=== PATIENT | male | born 1990 | race Caucasian/White ===

== ENCOUNTER 2020-07-09 15:13 | Emergency (ER) | payer OTHER, SELFPAY ==
--- NOTE | 2020-07-09 16:04 | PC.NURSE ---
pt signed in, asked if he could smoke a cigarette, was told hospital smoking policy and exited the waiting area. Pt did not return.
== END 2020-07-09 16:05 | disposition left against medical advice (07) ==
LOC: HO.ED 16:04
PROVIDERS: Emergency Provider Emergency Medicine
DX: R06.02 Shortness of breath (principal); R05 Cough; F17.210 Nicotine dependence, cigarettes, uncomplicated

== ENCOUNTER 2022-04-15 09:15 | Emergency (ER) | payer OTHER, SELFPAY ==
--- NOTE | ~2022-04-15 | XR_ITS ---
EXAMINATION: XR CHEST CLINICAL INFORMATION: Chest pain. COMPARISON: None TECHNIQUE: 2 views of the chest were obtained. FINDINGS: The lungs are clear. The cardiomediastinal silhouette is normal in size. There is no pleural effusion or pneumothorax. No acute osseous abnormality. XR/XR chest 2V IMPRESSION: No acute cardiopulmonary findings.
[2022-04-15 09:26] VITALS: BP 149/82; PULSE 67; RESP 16; TEMP 36.2; O2SAT 99; BMI 28.1
--- NOTE | 2022-04-15 10:32 | ECG_ITS ---
Test Reason : CP Blood Pressure : / mmHG Vent. Rate : 054 BPM Atrial Rate : 054 BPM P-R Int : 152 ms QRS Dur : 100 ms QT Int : 432 ms P-R-T Axes : 060 076 052 degrees QTc Int : 409 ms Sinus bradycardia Otherwise normal ECG When compared with ECG of 13-JUL-2016 11:26, ST no longer elevated in Anterior leads Nonspecific T wave abnormality now evident in Lateral leads Referred By: Cammy Lundberg Electronically Signed By:Julio Anderson
--- NOTE | 2022-04-15 10:36 | ED.ABDPAIN ---
HPI - Abdominal Pain General Chief Complaint: Abdominal Pain Stated Complaint: Abd pain/Leg numbness/Headache Time Seen by Provider: 04/15/22 10:20 Source: patient Mode of arrival: ambulatory Limitations: no limitations History of Present Illness HPI narrative: 32-year-old male who has a history of hepatitis C who presents with complaints of abdominal pain for several months. Patient reports he has had several ER visits post [facility] and [facility] and has had lab work, CTs which have all been normal. He did find out that he was hep C positive. He did is zoom call with a clinical biostatistics director and had outpatient labs ordered and drawn yesterday. he is waiting for the results. He denies any associated nausea or vomiting. He does report decreased oral intake. He was prescribed omeprazole but he has not started this. He is taking Carafate 4 times daily. Patient also reports constipation. He is taking MiraLax once daily but is still having hard stools. No diarrhea, fever or urinary symptoms. Last night he woke up in the middle the night complaining of left-sided chest pain, shortness of breath, headache, tingling. Patient reports the symptoms have improved but he still has mild chest discomfort. He reports he is quite worried about his abdominal pain. No recent travel, no sick contact, no leg swelling or leg pain. 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 Related Data Allergies Allergy/AdvReac Type Severity Reaction Status Date / Time red dye [RED DYE] Allergy Severe THROAT Verified 04/15/22 09:26 SWELLING, ITCHY RASH diphenhydramine Allergy Intermediate HIVES Verified 04/15/22 09:26 [From BENADRYL] Review of Systems Review of Systems Yes all other systems are reviewed and are negative Constitutional: Reports no additional constitutional complaints, Denies body ache(s), Denies chills, Denies fever(s), Reports headache(s), Reports poor appetite and Denies weakness Eyes: Reports no additional eye complaints and Denies change in vision Reports system reviewed and no additional complaints, except as documented, Denies dizziness, Reports headache(s), Denies nasal congestion, Denies nasal discharge and Denies neck pain Cardiovascular: Reports no additional cardiovascular complaints, Reports chest pain, Denies leg edema and Reports dyspnea Respiratory: Reports no additional respiratory complaints, Denies cough and Reports dyspnea Gastrointestinal: Reports no additional gastrointestinal complaints, Reports abdominal pain, Reports constipation, Denies diarrhea, Denies nausea and Denies vomiting Genitourinary: Denies urinary incontinence Musculoskeletal: Reports no additional musculoskeletal complaints, Denies back pain, Denies arthralgias, Denies joint swelling, Denies neck pain, Denies numbness and Denies tingling Skin/Breast: Reports system reviewed and no additional complaints, except as docu and Denies rash Reports system reviewed and no additional complaints, except as documented, Denies dizziness, Reports headache(s), Denies numbness, Denies tingling and Denies weakness [facility] Past Medical History Attestation statement: The following information was validated with the patient. Source: old records reviewed and nursing notes reviewed Social History Social History Advance Directives: No Advance Directives Information Provided: Yes Physical Exam ED Vital Signs: Vital Signs - 24 hr 04/15/22 09:26 Temperature 97.1 F Pulse Rate 67 Respiratory Rate 16 Blood Pressure 149/82 H Pulse Oximetry 99 Oxygen Delivery Method Room Air BMI result Body Mass Index 28.1 Const General: cooperative, healthy appearing, comfortable and no acute distress Orientation/consciousness: patient oriented x3 Limitations: no limitations HENMT Head: Yes normal to inspection Ears: hearing grossly normal bilaterally Eyes General: appearance normal, both eyes and all related structures Pupils: Equal, round and reactive pupils present Neck Neck: Yes normal visual inspection and Yes full ROM Chest Chest palpation & inspection: normal inspection of the chest Resp Effort & Inspection: normal respiratory effort Auscultation: clear to auscultation bilaterally Cardio Rate: regular rate Rhythm: regular rhythm Peripheral pulses: Peripheral pulses 2+ throughout GI Inspection: Yes normal to inspection Palpation (GI): Soft to palpation and nontender General: Yes no CVA tenderness Back/Spine/Pelvis Back: no CVA tenderness Thoracic/Lumbar Spine: thoracic and lumbar spine normal to inspection Skin General skin exam: no rashes or lesions noted Neuro General: patient oriented x3 and moves all extremities Cranial nerves: Yes Equal, round and reactive pupils present Cognition (Neuro): normal cognition Gait exam (Neuro): Normal gait present Extrem General: Yes normal to inspection, Yes no pedal edema and Yes no calf tenderness Course Course Course Narrative: labs are unremarkable. UA negative for infection. Chest x-ray shows no acute finding. EKG is nonischemic. patient already has follow-up planned with his clinical biostatistics director. He was able to pull up a CT scan that he had 2 weeks ago at [facility] the emergency room which was negative. We discussed continue to follow-up with them. Reviewed worrisome signs and symptoms of when to return to the emergency room. Comfortable plan for discharge home. Medical Decision Making Medical Decision Making [facility] Narrative: 32 yo male here with chronic abdominal pain for months, constipation unrelieved with miralax, carafate. Did zoom call with GI yesterday and had outpatient labs which were ordered and completed ([facility]). Does not know results. Woke up in the night with CP, shortness of breath, headache, tingling. +++anxiety. abdomen soft nontender. Overall nontoxic appearing vitals stable. Lungs are clear. Will check labs, UA, EKG, chest x-ray, viral testing Will attempt to get records from recent ER visit at [facility] in which patient had a CT Differential Diagnosis Differential Diagnoses: The differential diagnosis associated with the presentation includes less likely acute appendicitis or diverticulitis, or ACS or PE (PERC 0) Lab Data [facility] Lab Attestation statement: I reviewed the patient's lab results. 04/15/22 11:26 04/15/22 11:26 Labs: Lab Results 04/15/22 04/15/22 04/15/22 Range/Units 11:26 11:26 11:26 WBC 5.1 (4.8-10.8) X10*3/uL RBC 5.13 (4.60-5.80) X10*6/uL Hgb 15.6 (14.0-18.0) g/dl Hct 43.4 (42.0-52.0) % MCV 84.6 (80.0-98.0) fL MCH 30.4 (27.0-33.0) pg MCHC 35.9 (31.0-36.0) g/dl RDW 11.4 (11.0-16.0) % Plt Count 156 L (160-400) X10*3/uL MPV 12.5 H (9.4-12.4) fL Immature Gran % (Auto) 0.4 (0.0-0.4) % Neut % (Auto) 70.4 (45-73) % Lymph % (Auto) 19.8 L (20-40) % [place] % (Auto) 6.8 (2-11) % Eos % (Auto) 1.8 (0-4) % Baso % (Auto) 0.8 (0-2) % Lymph # (Auto) 1.0 L (1.2-4.9) X10*3/uL [place] # (Auto) 0.4 (0.1-1.2) X10*3/uL Eos # (Auto) 0.1 (0.0-0.4) X10*3/uL Baso # (Auto) 0.0 (0.0-0.2) X10*3/uL Abs Immat Gran (auto) 0.02 (0.00-0.03) X10*3/uL Absolute Neuts (auto) 3.6 (2.0-8.3) x10*3/uL Absolute Nucleated RBC 0.000 (0.0-0.012) X10*3/uL Nucleated RBC % (auto) 0.0 (0.0-0.2) /100WBC PT 13.6 H (10.0-13.1) SEC INR 1.2 H (0.9-1.1) Sodium (135-145) mmol/L Potassium (3.3-5.1) mmol/L Chloride (96-108) mmol/L Carbon Dioxide (22-29) mmol/L Anion Gap (12-20) BUN (9-16) mg/dL Creatinine (0.5-1.4) mg/dL Estim Creat Clear Calc Estimated GFR Random Glucose (60-115) mg/dL Calcium (8.4-10.2) mg/dL Magnesium (1.6-2.6) mg/dL Total Bilirubin (0.0-1.0) mg/dL Direct Bilirubin (0.0-0.5) mg/dL AST (5-37) U/L ALT (0-40) U/L Alkaline Phosphatase (39-117) U/L Troponin I High Sens (<3.5-35.0) ng/L Total Protein (6.5-8.0) g/dL Albumin (3.5-5.0) g/dL Lipase (8-78) U/L Urine Color Urine Appearance Urine pH (5.0-9.0) Ur Specific [place] (1.005-1.025) Urine Protein (Neg-Trace) mg/dL Urine Glucose (UA) (Negative) mg/dL Urine Ketones (Negative) mg/dL Urine Blood (Negative) Urine Nitrite (Negative) Ur Leukocyte Esterase (Negative) Urine RBC (0-2) /HPF Urine WBC (0-5) /HPF Ur Squamous Epith Cells (0-2) /HPF Urine Bacteria (None Seen) Hyaline Casts (0-2) /LPF Influenza Type A (PCR) NEGATIVE (Negative) Influenza Type B (PCR) NEGATIVE (Negative) RSV RNA Qual (PCR) NEGATIVE (Negative) SARS-CoV-2 RNA (RT-PCR) NEGATIVE (Negative) 04/15/22 04/15/22 04/15/22 Range/Units 11:26 11:26 11:26 WBC (4.8-10.8) X10*3/uL RBC (4.60-5.80) X10*6/uL Hgb (14.0-18.0) g/dl Hct (42.0-52.0) % MCV (80.0-98.0) fL MCH (27.0-33.0) pg MCHC (31.0-36.0) g/dl RDW (11.0-16.0) % Plt Count (160-400) X10*3/uL MPV (9.4-12.4) fL Immature Gran % (Auto) (0.0-0.4) % Neut % (Auto) (45-73) % Lymph % (Auto) (20-40) % [place] % (Auto) (2-11) % Eos % (Auto) (0-4) % Baso % (Auto) (0-2) % Lymph # (Auto) (1.2-4.9) X10*3/uL [place] # (Auto) (0.1-1.2) X10*3/uL Eos # (Auto) (0.0-0.4) X10*3/uL Baso # (Auto) (0.0-0.2) X10*3/uL Abs Immat Gran (auto) (0.00-0.03) X10*3/uL Absolute Neuts (auto) (2.0-8.3) x10*3/uL Absolute Nucleated RBC (0.0-0.012) X10*3/uL Nucleated RBC % (auto) (0.0-0.2) /100WBC PT (10.0-13.1) SEC INR (0.9-1.1) Sodium 142 (135-145) mmol/L Potassium 4.5 (3.3-5.1) mmol/L Chloride 103 (96-108) mmol/L Carbon Dioxide 30 H (22-29) mmol/L Anion Gap 14 (12-20) BUN 9 (9-16) mg/dL Creatinine 1.04 (0.5-1.4) mg/dL Estim Creat Clear Calc 116.9 Estimated GFR > 60 Random Glucose 104 (60-115) mg/dL Calcium 9.6 (8.4-10.2) mg/dL Magnesium 1.7 (1.6-2.6) mg/dL Total Bilirubin 1.1 H (0.0-1.0) mg/dL Direct Bilirubin 0.4 (0.0-0.5) mg/dL AST 26 (5-37) U/L ALT 45 H (0-40) U/L Alkaline Phosphatase 43 (39-117) U/L Troponin I High Sens < 3.5 (<3.5-35.0) ng/L Total Protein 7.1 (6.5-8.0) g/dL Albumin 4.5 (3.5-5.0) g/dL Lipase 11 (8-78) U/L Urine Color Yellow Urine Appearance Clear Urine pH 6.5 (5.0-9.0) Ur Specific [place] <= 1.005 (1.005-1.025) Urine Protein Negative (Neg-Trace) mg/dL Urine Glucose (UA) Negative (Negative) mg/dL Urine Ketones 15 (Negative) mg/dL Urine Blood Negative (Negative) Urine Nitrite Negative (Negative) Ur Leukocyte Esterase Trace H (Negative) Urine RBC 0-2 (0-2) /HPF Urine WBC 0-5 (0-5) /HPF Ur Squamous Epith Cells 0-2 (0-2) /HPF Urine Bacteria None Seen (None Seen) Hyaline Casts 0-2 (0-2) /LPF Influenza Type A (PCR) (Negative) Influenza Type B (PCR) (Negative) RSV RNA Qual (PCR) (Negative) SARS-CoV-2 RNA (RT-PCR) (Negative) Independent Interpretation I performed an independent interpretation of an: EKG and Plain X-Ray Interpretation: I independently reviewed the EKG which shows sinus bradycardia with rate of 54, normal GA, normal QRS, normal QT I indepedentely reviewed the x-ray and agree with radiologist's report Radiology Impression Discussion of test interpretation with radiology: I have reviewed the radiologist's reading. Radiologist Impression: Launch?Image [address] [address] XRay Report Signed Patient: Adrian Santos MR#: [id number] : 1990 Acct:[id number] Age/Sex: 32 / M ADM Date: 04/15/22 Loc: .ED Attending Dr: Ordering Physician: Cammy Mckeon NP Date of Service: 04/15/22 Procedure(s): XR chest 2V Accession Number(s): [id number] cc: Cammy Mckeon NP~ EXAMINATION: XR CHEST CLINICAL INFORMATION: Chest pain. COMPARISON: None TECHNIQUE: 2 views of the chest were obtained. FINDINGS: The lungs are clear. The cardiomediastinal silhouette is normal in size. There is no pleural effusion or pneumothorax. No acute osseous abnormality. XR/XR chest 2V IMPRESSION: No acute cardiopulmonary findings. Discharge Plan Discharge Clinical Impression: Abdominal pain, Chest pain Patient Disposition: Home, Self-Care Instructions: Chest Pain (DC), Abdominal Pain (ED) Additional Instructions: Continue with your follow-up with GI your labs, EKG, chest x-ray, urine sample are all reassuring Your test for flu, covid and rsv are negative Referrals: Physician,Unknown J [Primary Care Provider] - Interventions: ED Discharge Assessment Last Done: 04/15/22 12:32 Discharge Date/Time: 04/15/22 12:33
[2022-04-15 11:35] LABS: Basophils Percent Auto 0.8 % (0-2); Eosinophils Absolute Auto 0.1 X10*3/uL (0.0-0.4); Eosinophils Percent Auto 1.8 % (0-4); Hematocrit 43.4 % (42.0-52.0); Hemoglobin 15.6 g/dl (14.0-18.0); Imm Gran Abs Auto 0.02 X10*3/uL (0.00-0.03); Imm Gran Pct Auto 0.4 % (0.0-0.4); Lymphocytes Percent Auto 19.8 % (20-40); MANUAL DIFF FLAG NO; Mean Corpuscular HGB Conc 35.9 g/dl (31.0-36.0); Mean Corpuscular Hemoglobin 30.4 pg (27.0-33.0); Mean Corpuscular Volume 84.6 fL (80.0-98.0); Mean Platelet Volume 12.5 fL (9.4-12.4); Monocytes Absolute Auto 0.4 X10*3/uL (0.1-1.2); Monocytes Percent Auto 6.8 % (2-11); Neutrophils Absolute Auto 3.6 x10*3/uL (2.0-8.3); Neutrophils Percent Auto 70.4 % (45-73); Platelet Count 156 X10*3/uL (160-400); Red Blood Count 5.13 X10*6/uL (4.60-5.80); Red Cell Distribution Width 11.4 % (11.0-16.0); White Blood Count 5.1 X10*3/uL (4.8-10.8)
[2022-04-15 11:36] LABS: Appearance Urine Clear; Color Urine Yellow; Glucose Urine UA Negative (Negative); Leukocyte Esterase Urine Trace (Negative); Nitrite Urine Negative (Negative); PH 6.5 (5.0-9.0); Specific Gravity - Urine <= 1.005 (1.005-1.025); UMIC TRIGGER UACC YES; Urine Blood Negative (Negative); Urine Ketones 15 mg/dL (Negative); Urine Protein Negative (Neg-Trace)
[2022-04-15 11:38] LABS: Bacteria Urine None Seen (None Seen); Hyaline Casts Urine 0-2 /LPF (0-2); RBC Urine 0-2 /HPF (0-2); Squamous Epithelial Cell Urine 0-2 /HPF (0-2); WBC Urine 0-5 /HPF (0-5)
[2022-04-15 11:40] LABS: INTERNATIONAL NORM RATIO 1.2 (0.9-1.1); Prothrombin Time 13.6 SEC (10.0-13.1)
[2022-04-15 11:51] LABS: Alanine Aminotransferase 45 U/L (0-40); Albumin Level 4.5 g/dL (3.5-5.0); Alkaline Phosphatase 43 U/L (39-117); Anion Gap 14 (12-20); Aspartate Amino Transferase 26 U/L (5-37); Bilirubin Direct 0.4 mg/dL (0.0-0.5); Bilirubin Total 1.1 mg/dL (0.0-1.0); Blood Urea Nitrogen 9 mg/dL (9-16); Calcium 9.6 mg/dL (8.4-10.2); Carbon Dioxide 30 mmol/L (22-29); Chloride 103 mmol/L (96-108); Creatinine Clr Calc Pharmacy 116.9; Estimated Glomerular Filt Rate > 60; Glucose Random 104 mg/dL (60-115); Lipase 11 U/L (8-78); Magnesium 1.7 mg/dL (1.6-2.6); Potassium 4.5 mmol/L (3.3-5.1); Sodium 142 mmol/L (135-145); Total Protein 7.1 g/dL (6.5-8.0)
[2022-04-15 11:58] LABS: Troponin-I High Sensitivity < 3.5 ng/L (<3.5-35.0)
[2022-04-15 12:16] LABS: Influenza A PCR NEGATIVE (Negative); Influenza B PCR NEGATIVE (Negative); Resp Syncy Virus RNA Qual PCR NEGATIVE (Negative); SARS COV2 PCR INHOUSE NEGATIVE (Negative)
== END 2022-04-15 12:33 | disposition home or self-care (01) ==
PROVIDERS: Nurse Practitioner Family; Emergency Provider Emergency Medicine Emergency Medical Services
DX: R10.9 Unspecified abdominal pain (principal); R07.89 Other chest pain; R06.02 Shortness of breath; R51.9 Headache, unspecified; Z20.822 Contact with and (suspected) exposure to COVID-19; Z20.828 Contact with and (suspected) exposure to other viral communicable diseases; Z79.899 Other long term (current) drug therapy
CPT/HCPCS: 0241U; 36415; 71046; 80048; 80076; 81001; 83690; 83735; 84484; 85025; 85610; 93005; 99284

== ENCOUNTER 2022-04-17 20:43 | Emergency (ER) | payer OTHER, SELFPAY ==
--- NOTE | ~2022-04-17 | CT_ITS ---
EXAMINATION: CT ABDOMEN AND PELVIS WITHOUT CONTRAST CLINICAL INFORMATION: Abdominal pain COMPARISON: None TECHNIQUE: Multidetector volumetric imaging was performed from the superior aspect of the liver through the pubic symphysis. Sagittal and coronal reformatted images were obtained on the technologist's workstation. This CT examination was performed using dose optimization techniques as appropriate, variously including the following: *Automated exposure control *Adjustment of mA and/or kV according to patient size (this includes techniques or standardized protocols for targeted exams where dose is matched to indication/reason for exam; i.e. extremities or head) *Use of iterative reconstruction technique DLP: 586 mGy-cm FINDINGS: LUNG BASES: The visualized lung bases are unremarkable. LIVER, GALLBLADDER, AND BILIARY TREE: The liver is normal in size, shape, and attenuation. No focal hepatic lesion or biliary ductal dilatation is present. The gallbladder is unremarkable with no evidence of radiopaque gallstones, gallbladder wall thickening, or obvious pericholecystic inflammatory changes. PANCREAS: Unremarkable. SPLEEN: Unremarkable. ADRENAL GLANDS: Unremarkable. KIDNEYS AND URETERS: The kidneys are normal in size, shape, and attenuation. No hydronephrosis, hydroureter, or calculi seen. No perinephric stranding. BLADDER: Unremarkable. GASTROINTESTINAL TRACT: The small and large bowel are unremarkable. The appendix is unremarkable. ABDOMINAL WALL: No significant hernia is appreciated. LYMPH NODES: Normal. VASCULAR: Unremarkable. PELVIC VISCERA: The prostate and seminal vesicles are unremarkable. OSSEOUS STRUCTURES: No acute or suspicious osseous abnormality. Bone island in the left iliac bone. CT/CT abdomen pelvis wo IV con IMPRESSION: No acute findings in the abdomen or pelvis. No inflammatory changes. Fleischner guidelines were followed.
[2022-04-17 21:10] VITALS: BP 147/82; PULSE 70; RESP 18; TEMP 36.9; O2SAT 99; BMI 27.1
[2022-04-17 21:55] LABS: MANUAL DIFF FLAG NO
[2022-04-17 21:58] LABS: Basophils Percent Auto 0.6 % (0-2); Eosinophils Absolute Auto 0.2 X10*3/uL (0.0-0.4); Eosinophils Percent Auto 2.1 % (0-4); Hematocrit 42.5 % (42.0-52.0); Hemoglobin 15.1 g/dl (14.0-18.0); Imm Gran Abs Auto 0.02 X10*3/uL (0.00-0.03); Imm Gran Pct Auto 0.3 % (0.0-0.4); Lymphocytes Percent Auto 26.9 % (20-40); Mean Corpuscular HGB Conc 35.5 g/dl (31.0-36.0); Mean Corpuscular Hemoglobin 29.8 pg (27.0-33.0); Mean Corpuscular Volume 83.8 fL (80.0-98.0); Mean Platelet Volume 12.3 fL (9.4-12.4); Monocytes Absolute Auto 0.5 X10*3/uL (0.1-1.2); Monocytes Percent Auto 7.5 % (2-11); Neutrophils Absolute Auto 4.5 x10*3/uL (2.0-8.3); Neutrophils Percent Auto 62.6 % (45-73); Platelet Count 171 X10*3/uL (160-400); Red Blood Count 5.07 X10*6/uL (4.60-5.80); Red Cell Distribution Width 11.7 % (11.0-16.0); White Blood Count 7.2 X10*3/uL (4.8-10.8)
[2022-04-17 22:04] LABS: Appearance Urine Clear; Color Urine Yellow; Glucose Urine UA Negative (Negative); Leukocyte Esterase Urine Negative (Negative); Nitrite Urine Negative (Negative); PH 7.5 (5.0-9.0); Urine Blood Negative (Negative); Urine Ketones Negative (Negative); Urine Protein Negative (Neg-Trace)
[2022-04-17 22:26] LABS: Alanine Aminotransferase 41 U/L (0-40); Albumin Level 4.6 g/dL (3.5-5.0); Alkaline Phosphatase 44 U/L (39-117); Anion Gap 14 (12-20); Aspartate Amino Transferase 25 U/L (5-37); Bilirubin Direct 0.2 mg/dL (0.0-0.5); Bilirubin Total 0.6 mg/dL (0.0-1.0); Blood Urea Nitrogen 9 mg/dL (9-16); Calcium 9.7 mg/dL (8.4-10.2); Carbon Dioxide 28 mmol/L (22-29); Chloride 102 mmol/L (96-108); Estimated Glomerular Filt Rate > 60; Glucose Random 100 mg/dL (60-115); Lipase 17 U/L (8-78); Potassium 4.2 mmol/L (3.3-5.1); Sodium 140 mmol/L (135-145); Total Protein 7.2 g/dL (6.5-8.0)
--- OUTSIDE RECORDS SUMMARY | 2022-04-17 22:46 | XMS_ITS | Continuity of Care Document ---
:1990 Author Organization [facility] Address [address] [place] [id number]- Care Team Providers Name Role Phone Chika Boswell MD Primary Care Physician Encounter [place] Date(s): 03/27/22 - 03/28/[address] [address]- Encounter Diagnosis Abdominal pain (Final) - 03/28/22 Nausea (Final) - 03/28/22 Discharge Disposition: A-D/C Home Attending Physician: Angel Dolan MD Admitting Physician: Angel Dolan MD Referring Physician: Not on Staff, Referring MD Allergies, Adverse Reactions, Alerts Substance Reaction Severity Status Benadryl1 Persistent Severe Active 1anaphylaxis Medications gabapentin 300 mg oral capsule 300 mg, 1, capsule, By Mouth, 2 times a day, Refills 0, Maintenance, 01/06/20 13:59:00 EST Start Date: 01/06/20 Status: OrderedSuboxone 4 mg-1 mg sublingual film 1 film, Sublingual, Daily, dissolve under the tongue, 0 Refills, Maintenance, 01/06/20 13:59:00 EST,Film Start Date: 01/06/20 Status: OrderedVyvanse 40 mg oral capsule 1 capsule = 40 mg, By Mouth, Daily in AM, # 30 capsule, 0 Refills, Maintenance, 07/22/20 9:31:00 EDT, Capsule, [id number], Partial fill upon patient request if the prescription is for a schedule II opioid drug., 183, cm, 01/06/20 13:59:00 EST,... Start Date: 07/22/20 Stop Date: 08/21/20 Status: Ordered Results Radiology Reports Exam Date Time Procedure Performing Provider Status 03/27/22 7:[address] Abd/Pelvis W/ IV Contrast Only Avinash Esquivel; Auth (Verified) Notes:(CT Abd/Pelvis W/ IV Contrast Only) Reason For Exam: LLQ abdominal pain;Other:RESULT: CT Abd/Pelvis W/ IV Contrast Only CT Abd/Pelvis W/ IV Contrast Only Refer to EMR; Hx of Present Illness: R sided abd and flank pain for 2wks. Seen at PCP once with no finding. Some relief with use of laxative X2 but pain has since returned. 5 10, constant. +nausea,no vomiting. Light headed and dizzy with pain. No urinary symptoms. Coming off Suboxone .; Reason: Other:; LLQ abdominal pain; Clinical Question(s): Diverticulitis; Order Comment: Patient unable to kaitlynn TECHNIQUE: Spiral CT through the abdomen and pelvis with IV contrast formatted in 3 planes. 100 cc of Omnipaque 300 was administered intravenously. This study was performed without oral contrast. Weight-based protocol using automatic tube modulation was used to optimize exposure parameters. CTDIvol Body: 10.70 mGy, DLP Body: 585 mGy*cm. COMPARISON: None. FINDINGS: Brusher Hand View Findings, Lines and Tubes: None. Visualized Chest: Lung bases are clear. No pleural effusion. The heart is normal in size. No pericardial effusion. Diaphragm: Normal. Liver: Normal. Gallbladder: No CT evidence of gallbladder pathology. Bile ducts: No biliary ductal dilation. Spleen: Normal. Pancreas: Normal. Adrenal glands: Normal. Kidneys and ureters: Possible punctate nonobstructing stone in the mid left kidney (image 59, [id number]). No hydronephrosis or suspicious mass. Circumaortic left renal vein. Bladder: Normal. Reproductive organs: Unremarkable. Stomach, small bowel, and large bowel: No evidence of bowel obstruction or focal inflammatory process or wall thickening. Diverticulosis of the colon without evidence of acute diverticulitis. Appendix: Normal. Peritoneum and retroperitoneum: No ascites or pneumoperitoneum. No omental or mesenteric lesions. Lymph nodes: No enlarged lymph nodes. Blood vessels: Normal. No aneurysm. No evidence of venous thrombosis. Abdominal and pelvic wall: Focal nodular tissue densities within the subcutaneous fat of the anterior abdominal wall, may represent sites of subcutaneous injections versus epidermal inclusion cysts.. Bones: No acute abnormality. Likely benign bone island of the left pelvis. IMPRESSION: No acute abnormality identified in the abdomen or pelvis. WSN: [id number] Ordering Physician: Miri Macdonald Dictated By: Marcell Salinas MD Dictated Date/Time: 03/27/22 8:27 pm Reviewed By: Marcell Salinas MD Signed By: Marcell Salinas MD Signed Date/Time: 03/27/22 8:27 pm Transcribed By: RADHA Transcribed Date/Time: 03/27/22 8:06 pm Vital Signs Most recent to oldest 1 2 3 [Reference Range]: Oxygen Saturation [94-100 %] 99 % 100 % 100 % (03/28/22 4:02 AM) (03/28/22 1:10 AM) (03/27/22 10: 29 PM) Pulse Rate [55-90 bpm] 60 bpm 60 bpm 76 bpm (03/28/22 4:02 AM) (03/28/22 1:10 AM) (03/27/22 10: 29 PM) Blood Pressure [90-138/55-84 131/71 mm Hg 145/80 mm Hg 150 /66 mm Hg mm Hg] (03/28/22 4:02 AM) *H* *H* (03/28/22 1:10 AM) (03/27/22 10:29 PM) Respiratory Rate [16-30 18 br/min 18 br/min br/min] (03/27/22 2:58 PM) (03/27/22 2:50 PM) Temperature [96.8-100.4 DegF] 98.0 DegF 98.1 DegF 98 .2 DegF (03/28/22 4:02 AM) (03/28/22 1:10 AM) (03/27/22 10: 29 PM) Mode of Delivery (Oxygen) Room air Room air Room a ir (03/28/22 4:02 AM) (03/28/22 1:10 AM) (03/27/22 10: 29 PM) Blood pressure sites Arm, right Arm, right Arm, left (03/28/22 4:02 AM) (03/28/22 1:10 AM) (03/27/22 10: 29 PM) Temperature Route Oral Oral Oral (03/28/22 4:02 AM) (03/28/22 1:10 AM) (03/27/22 10: 29 PM) Social History Social History Type Response Smoking Status Current every day smoker entered on: 10/20/[address] Abdomen and Pelvis W contrast IV BHSPowerscribe , CIS S: REFUGIO Salinas MD, Marcell: VERIFY Event Display: Result: Authored Date: [id number] CT Abd/Pelvis W/ IV Contrast Only Refer to EMR; Hx of Present Illness: R sided abd and flank pain for 2wks. Seen at PCP once with no finding. Some relief with use of laxative X2 but pain has since returned. 5 10, constant. +nausea,no vomiting. Light headed and dizzy with pain. No urinary symptoms. Coming off Suboxone .; Reason: Other:; LLQ abdominal pain; Clinical Question(s): Diverticulitis; Order Comment: Patient unable to kaitlynn TECHNIQUE: Spiral CT through the abdomen and pelvis with IV contrast formatted in 3 planes. 100 cc of Omnipaque 300 was administered intravenously. This study was performed without oral contrast. Weight-based protocol using automatic tube modulation was used to optimize exposure parameters. CTDIvol Body: 10.70 mGy, DLP Body: 585 mGy*cm. COMPARISON: None. FINDINGS: Brusher Hand View Findings, Lines and Tubes: None. Visualized Chest: Lung bases are clear. No pleural effusion. The heart is normal in size. No pericardial effusion. Diaphragm: Normal. Liver: Normal. Gallbladder: No CT evidence of gallbladder pathology. Bile ducts: No biliary ductal dilation. Spleen: Normal. Pancreas: Normal. Adrenal glands: Normal. Kidneys and ureters: Possible punctate nonobstructing stone in the mid left kidney (image 59, [id number]). No hydronephrosis or suspicious mass. Circumaortic left renal vein. Bladder: Normal. Reproductive organs: Unremarkable. Stomach, small bowel, and large bowel: No evidence of bowel obstruction or focal inflammatory process or wall thickening. Diverticulosis of the colon without evidence of acute diverticulitis. Appendix: Normal. Peritoneum and retroperitoneum: No ascites or pneumoperitoneum. No omental or mesenteric lesions. Lymph nodes: No enlarged lymph nodes. Blood vessels: Normal. No aneurysm. No evidence of venous thrombosis. Abdominal and pelvic wall: Focal nodular tissue densities within the subcutaneous fat of the anterior abdominal wall, may represent sites of subcutaneous injections versus epidermal inclusion cysts.. Bones: No acute abnormality. Likely benign bone island of the left pelvis. IMPRESSION: No acute abnormality identified in the abdomen or pelvis. WSN: [id number] Ordering Physician: Miri Macdonald Dictated By: Marcell Salinas MD Dictated Date/Time: 03/27/22 8:27 pm Reviewed By: Marcell Salinas MD Signed By: Marcell Salinas MD Signed Date/Time: 03/27/22 8:27 pm Transcribed By: CSDon Transcribed Date/Time: 03/27/22 8:06 pm Patient Care team information Care Team PersonnelName: Hansel KNOX, Rashad Position: [facility] RN Member Role: Primary Care Nurse Name: Chika Boswell MD Position: [facility] Primary Care Physician Member Role: PCP Address: Address: [address] [place] [address] Name: Lesley Quezada Position: [facility] ED TA [facility] Name: Candice Nicholas MD Position: [facility] Resident Member Role: ED Resident Address: Address: [address] [place] [address] Name: Amanda Coats RN Position: [facility] ED RN W/OE and Tasks Member Role: Patient Care Provider Name: Angel Dolan MD Position: [facility] Resident Member Role: Admitting Physician Address: Address: [address] [place] [address] Care Team Related PersonsName: JULIANA PRECIADO Address: [place] [address] Name: RAMONA PICHARDO Address: [address] [address] Name: NONE, REQUESTED Name: KRYSTIN SOSA Address: [address] [address]
--- OUTSIDE RECORDS SUMMARY | 2022-04-17 22:46 | XMS_ITS | Continuity of Care Document ---
:1990 Author Organization [facility] Address [address] [place] [address]- Care Team Providers Name Role Phone Chika Boswell MD Primary Care Physician Encounter [facility] [place] Date(s): 04/21/19 - 04/22/[address] [address]- [facility] [phone] Encounter Diagnosis Polysubstance abuse (Final) - 04/22/19 Discharge Disposition: A-D/C Home Attending Physician: Delmer Garces MD Admitting Physician: Delmer Garces MD Referring Physician: Not on Staff, Referring MD Allergies, Adverse Reactions, Alerts Substance Reaction Severity Status Benadryl1 Persistent Severe Active 1anaphylaxis Medications No Known Medications Vital Signs Most recent to oldest [Reference Range]: 1 2 Height 183 cm (04/21/19 9:39 PM) Weight 93.5 kg (04/21/19 9:39 PM) Oxygen Saturation [94-100 %] 98 % 94 % (04/22/19 4:46 AM) (04/21/19 9:39 PM) Pulse Rate [55-90 bpm] 65 bpm 77 bpm (04/22/19 4:46 AM) (04/21/19 9:39 PM) Blood Pressure [90-138/55-84 mm Hg] 136/80 mm Hg 144/ 84 mm Hg (04/22/19 4:46 AM) *H* (04/21/19 9:39 PM) Respiratory Rate [16-30 br/min] 18 br/min (04/21/19 9:39 PM) Temperature [96.8-100.4 DegF] 97.6 DegF (04/21/19 9:39 PM) Mode of Delivery (Oxygen) Room air Room air (04/22/19 4:46 AM) (04/21/19 9:39 PM) Blood pressure sites Arm, right (04/21/19 9:39 PM) Temperature Route Oral (04/21/19 9:39 PM) Dry Weight 93.5 kg (04/21/19 9:39 PM) Weight Obtained Via Patient/family stated (04/21/19 9:39 PM) Social History Social History Type Response Smoking Status Current every day smoker entered on: 10/20/14 Sex
--- OUTSIDE RECORDS SUMMARY | 2022-04-17 22:46 | XMS_ITS | Continuity of Care Document ---
:1990 Author Organization [facility] Address [address] [place] [address]- Care Team Providers Name Role Phone Mreline Ragsdale MD Primary Care Physician Encounter [facility] Date(s): 03/30/22 - 03/31/[address] [address]- Discharge Disposition: A-D/C Home Attending Physician: Gage Butts MD Admitting Physician: Gage Butts MD Referring Physician: Not on Staff, Referring MD Allergies, Adverse Reactions, Alerts Substance Reaction Severity Status Benadryl1 Persistent Severe Active 1anaphylaxis Medications gabapentin 300 mg oral capsule 300 mg, 1, capsule, By Mouth, 2 times a day, Refills 0, Maintenance, 01/06/20 13:59:00 EST Start Date: 01/06/20 Status: Orderedomeprazole 20 mg oral delayed release tablet 1 tablet = 20 mg, By Mouth, Daily, # 30 tablet, 0 Refills, Maintenance, 03/31/22 0:44:00 EST, EC Tablet, [id number], Partial fill upon patient request if the prescription is for a schedule II opioid drug., 183, cm, 03/30/22 23:43:00 EST, Heigh... Start Date: 03/31/22 Status: OrderedSuboxone 4 mg-1 mg sublingual film 1 film, Sublingual, Daily, dissolve under the tongue, 0 Refills, Maintenance, 01/06/20 13:59:00 EST,Film Start Date: 01/06/20 Status: OrderedVyvanse 40 mg oral capsule 1 capsule = 40 mg, By Mouth, Daily in AM, # 30 capsule, 0 Refills, Maintenance, 07/22/20 9:31:00 EDT, Capsule, [id number], Partial fill upon patient request if the prescription is for a schedule II opioid drug., 183, cm, 01/06/20 13:59:00 EST,... Start Date: 07/22/20 Stop Date: 08/21/20 Status: Ordered Vital Signs Most recent to oldest 1 2 3 [Reference Range]: Height 183 cm 183 cm 183 cm (03/31/22 12:52 AM) (03/30/22 11:43 PM) (03/30/22 1 1:41 PM) Weight 95 kg 95 kg 95 kg (03/31/22 12:52 AM) (03/30/22 11:43 PM) (03/30/22 1 1:41 PM) Oxygen Saturation [94-100 %] 97 % 95 % (03/31/22 12:52 AM) (03/30/22 11:41 PM) Pulse Rate [55-90 bpm] 58 bpm 66 bpm (03/31/22 12:52 AM) (03/30/22 11:41 PM) Body Mass Index [18.5-24.99 28.37 kg/m2 28.37 kg/m2 kg/m2] *H* *H* (03/31/22 12:52 AM) (03/30/22 11:41 PM) Blood Pressure [90-138/55-84 125/77 mm Hg 154/93 mm Hg mm Hg] (03/31/22 12:52 AM) *H* (03/30/22 11:41 PM) Respiratory Rate [16-30 16 br/min br/min] (03/31/22 12:52 AM) Temperature [96.8-100.4 98.2 DegF DegF] (03/30/22 11:41 PM) Liters per Minute 0 L/min (03/31/22 12:52 AM) Mode of Delivery (Oxygen) Room air (03/31/22 12:52 AM) Blood pressure sites Arm, left (03/31/22 12:52 AM) Dry Weight 95 kg 95 kg 95 kg (03/31/22 12:52 AM) (03/30/22 11:43 PM) (03/30/22 1 1:41 PM) Social History Social History Type Response Smoking Status Current every day smoker entered on: 10/20/14 Sex Note Gage Butts MD: PERFORM, SIGN, VERIFY Event Display: Patient Education Handout Authored Date: Gage Butts MD: PERFORM Event Display: Patient Education Leaflets Authored Date: Unknown Causes of Abdominal Pain (Adult) ?? [id number] Unknown Causes of Abdominal Pain (Adult) The exact cause of your belly (abdominal) pain is not clear. Your exam and tests don't suggest a dangerous cause at this time. This does not mean that this is something to worry about. Everyone likes to know the exact cause of the problem. But sometimes with belly pain, there is no clear-cut cause, and this could be a good thing. Your symptoms can be treated, and you should feel better.?? Your condition does not seem serious now. But sometimes the signs of a serious problem may take more time to appear. For this reason,??it's important for you to watch for any new symptoms, problems,??or worsening of your condition. Over the next few days, the abdominal pain may come and go. Or it may be constant. Other common symptoms can include nausea and vomiting. Sometimes it can be difficult to tell if you feel nauseous. You may just feel bad and not connect that feeling to nausea. Constipation, diarrhea, and a fever may go along with the pain. The pain may continue even if treated correctly over the following days. Depending on how things go, sometimes the cause can become clear and you may need more??or different treatment. You may also need other evaluations, medicines, or tests. Home care Your healthcare provider may prescribe medicine for pain, symptoms, or an infection. ??Follow the healthcare provider's instructions for taking these medicines. General care ??? Rest as much as you can until your next exam. No strenuous activities. ??? Try to not do anything that may have caused your symptoms. This might be not taking any medicines unless otherwise directed by your healthcare provider. It might be not eating certain foods or doing certain activities. ???Find positions that ease discomfort. A small pillow placed on your belly may help relieve pain. ??? Something warm on your belly such as a heating pad may help, but be careful not to burn yourself. Diet ??? Don???t??force yourself to eat, especially if having cramps, vomiting, or diarrhea. ??? Water is important so you don't get dehydrated. Soup may also be good. Sports drinks may also help, especially if they are not too acidic. Don't drink sugary drinks as this can make things worse. Take liquids in small amounts. Don???t??guzzle them. ??? Caffeine sometimes makes the pain and cramping worse. ??? Don???t take??dairy products if you have vomiting or diarrhea. ??? Don't eat large amounts at atime. Eat several small meals during the day instead of 2 or 3 larger meals. Wait a few minutes between bites. ??? Eat a diet low in fiber (called a low-residue diet). Foods allowed include refined breads, white rice, fruit and vegetable juices without pulp, tender meats. These foods will pass more easily through the intestine. ??? Don???t have??whole-grain foods, whole fruits and vegetables, meats, seeds and nuts, fried or fatty foods, dairy, alcohol and spicy foods until your symptoms go away. ?? Follow-up care Follow up with your healthcare provider, or as advised, if your pain does not begin to improve in the next 24 hours. ?? Call 911 Call?? 911 if any of these occur: ??? Trouble breathing ??? Confusion ??? Fainting or loss of consciousness ??? Rapid heart rate ??? Seizure ?? When to seek medical advice Call your healthcare provider right away if any of these occur: ??? Pain gets worse or moves to theright lower abdomen ??? New or worsening vomiting or diarrhea ??? Swelling of the abdomen ??? Unableto pass stool for more than??3 days ??? Fever of 100.4??F (38??C) or higher, or as directed by your healthcare provider ??? Blood in vomit or bowel movements (dark red or black color) ??? Yellow color of eyes and skin (jaundice) ??? Weakness, dizziness ??? Chest, arm, back, neck, or jaw pain ??? Can'tkeep down medicines, liquids, or water because of too much vomiting ??? If you have a vagina: unexpected vaginal bleeding or missed period ?? Last Reviewed Date: 2021 ?? 6635-2779 [employer]. All rights reserved. This information is not intended as a substitute for professional medical care. Always follow your healthcare professional's instructions. ?? Patient Care team information Care Team PersonnelName: Rashad Hamm RN Position: [facility] SN RN Member Role: Primary Care Nurse Name: Jn TATE, Merline Fu Position: Reference Physician Member Role: PCP Address: Address: [address] [place] [address]- Name: Amanda Pelletier Position: [facility] ED OA Member Role: ED Associate Name: Tyson KNOX, Quynh Position: [facility] ED RN W/OE and Tasks Member Role: Patient Care Provider Name: Benjamín TATE, Gage Andujar Position: [facility] ED Medicine MD Member Role: ED Attending Physician Address: Address: [address] [place] [address]- Care Team Related PersonsName: JULIANA PRECIADO Address: [place] [address] Name: RAMONA PICHARDO Address: home [address] [place] [address] Name: NONE, REQUESTED Name: KRYSTIN SOSA Address: home [address] [place] [address]
--- OUTSIDE RECORDS SUMMARY | 2022-04-17 22:46 | XMS_ITS | Continuity of Care Document ---
:1990 Author Organization [facility] Address [address] [place] [address]- Care Team Providers Name Role Phone Chika Boswell MD Primary Care Physician Encounter [facility] Date(s): 07/22/20 - 07/22/[address] [address]- Encounter Diagnosis Medication refill (Final) - 07/22/20 Discharge Disposition: A-D/C Home Attending Physician: Bijal Malhotra MD Admitting Physician: Bijal Malhotra MD Referring Physician: Not on Staff, Referring [...] Refills, Maintenance, 07/22/20 9:31:00 EDT, Capsule, [id number], Partial fill upon patient request if the prescription is for a schedule II opioid drug., 183, cm, 01/06/20 13:59:00 EST,... Start Date: 07/22/20 Stop Date: 08/21/20 Status: Ordered Vital Signs Most recent to oldest [Reference Range]: 1 2 Oxygen Saturation [94-100 %] 97 % 96 % (07/22/20 6:46 AM) (07/22/20 4:08 AM) Pulse Rate [55-90 bpm] 74 bpm 84 bpm (07/22/20 6:46 AM) (07/22/20 4:08 AM) Blood Pressure [90-138/55-84 mm Hg] 146/74 mm Hg 154/ 74 mm Hg *H* *H* (07/22/20 6:46 AM) (07/22/20 4:08 AM) Respiratory Rate [16-30 br/min] 20 br/min 16 br/mi n (07/22/20 6:46 AM) (07/22/20 4:08 AM) Temperature [96.8-100.4 DegF] 98.4 DegF 98.6 DegF (07/22/20 6:46 AM) (07/22/20 4:08 AM) Mode of Delivery (Oxygen) Room air Room air (07/22/20 6:46 AM) (07/22/20 4:08 AM) Blood pressure sites Arm, left Arm, left (07/22/20 6:46 AM) (07/22/20 4:08 AM) Temperature Route Oral Oral (07/22/20 6:46 AM) (07/22/20 4:08 AM) Social History Social History Type Response Smoking Status Current every day smoker entered on: 10/20/14 Sex
--- OUTSIDE RECORDS SUMMARY | 2022-04-17 22:46 | XMS_ITS | Continuity of Care Document ---
:1990 Author Organization [facility] Address [address] [place] [address]- Care Team Providers Name Role Phone Merline Ragsdale MD Primary Care Physician Encounter [facility] Date(s): 04/15/22 - 04/16/[address] [address]- Encounter Diagnosis Anxiety about health (Final) - 04/16/22 Discharge Disposition: A-D/C Home Attending Physician: Dread Soria MD Admitting Physician: Dread Soria MD Referring Physician: Not on Staff, Referring MD Allergies, Adverse Reactions, Alerts Substance Reaction Severity Status Benadryl1 Persistent Severe Active iodine Active 1anaphylaxis Medications gabapentin 300 mg oral capsule 300 mg, 1, capsule, By Mouth, 2 times a day, Refills 0, Maintenance, 01/06/20 13:59:00 EST Start Date: 01/06/20 Status: Orderedomeprazole 20 mg oral delayed release tablet 1 tablet = 20 mg, By Mouth, Daily, # 30 tablet, 0 Refills, Maintenance, 03/31/22 0:44:00 EST, EC Tablet, [id number], Partial fill upon patient request if [...] Refills, Maintenance, 07/22/20 9:31:00 EDT, Capsule, [id number], Partial fill upon patient request if the prescription is for a schedule II opioid drug., 183, cm, 01/06/20 13:59:00 EST,... Start Date: 07/22/20 Stop Date: 08/21/20 Status: Ordered Vital Signs Most recent to oldest [Reference Range]: 1 2 Height 183 cm (04/15/22 9:55 PM) Weight 90.8 kg (04/15/22 9:55 PM) Oxygen Saturation [94-100 %] 100 % 98 % (04/16/22 1:48 AM) (04/15/22 9:47 PM) Pulse Rate [55-90 bpm] 70 bpm 83 bpm (04/16/22 1:48 AM) (04/15/22 9:47 PM) Blood Pressure [90-138/55-84 mm Hg] 146/97 mm Hg 146/ 85 mm Hg *H* *H* (04/16/22 1:48 AM) (04/15/22 9:47 PM) Respiratory Rate [16-30 br/min] 18 br/min (04/15/22 9:47 PM) Temperature [96.8-100.4 DegF] 98.5 DegF 99.3 DegF (04/16/22 1:48 AM) (04/15/22 9:47 PM) Mode of Delivery (Oxygen) Room air Room air (04/16/22 1:48 AM) (04/15/22 9:47 PM) Blood pressure sites Arm, left (04/15/22 9:47 PM) Temperature Route Oral Oral (04/16/22 1:48 AM) (04/15/22 9:47 PM) Dry Weight 90.8 kg (04/15/22 9:55 PM) Social History Social History Type Response Smoking Status Current every day smoker entered on: 10/20/14 Sex Note Dread Soria MD: PERFORM Event Display: Patient Education Leaflets Authored Date: [id number] Anxiety??Reaction ?? [id number] Anxiety??Reaction Anxiety is the feeling we all get when we think something bad might happen. It is a normal responseto stress. It most often causes only a mild reaction. But it can interfere with daily life when anxiety is more severe. In some cases, you may not know what you???re anxious about. Anxiety seems to have both mental and physical triggers. You may have stress from home and family. Or work and social relationships. Anxiety tends to run in families. This may mean it???s linked to genes. During an anxiety reaction, you may feel: ??? Helpless ??? Nervous ??? Depressed ??? Grouchy Your body may show signs of anxiety in many ways. You may have: ??? Dry mouth ??? Shakiness ??? Dizziness ??? Weakness ??? Trouble breathing ??? Fast breathing ???Chest pressure ??? Sweating ??? Headache ??? Nausea ??? Diarrhea ??? Tiredness ??? Inability to sleep ??? Sexual problems Home care Try to find those things that set off anxiety in your life. They may not be obvious. They may include: ??? Daily hassles of life. This can include traffic jams, missed appointments, or car troubles. ???Major life changes. This means both good changes, such as a new baby or job promotion. This can alsomean tough life changes, such as loss of a job or loss of a loved one. ??? Overload. This means feeling that you have too many responsibilities. And that you can't take care of all of them. ??? Feeling helpless. You may feel you don???t have any control or choices. You may feel that your problems can't be solved. Notice how your body reacts to stress. This will help you take action before the stress sets off anxiety. When you can, make changes to reduce the sources of your stress. But stress in life often can't be prevented. It is important to learn how to manage stress to reduce anxiety. There are many proven methods that will reduce your anxiety. These include: ??? Exercise ??? Good nutrition ??? Getting enough sleep ??? Relaxation methods ??? Breathing exercises ??? Visualization ??? Biofeedback ??? Meditation ??? Counseling ??? Medicine For more information about this, talk with your healthcare provider. Or check online or at your local library or bookstore. You'll find many books and audiobooks on this subject. ?? Follow-up care If you feel your anxiety is not getting better with self-help, call your healthcare provider. Or make an appointment with a counselor. You may need short-term counseling or medicine to help you manageanxiety. ?? Call 911 Call 911 if any of the following occur: ??? Trouble breathing ??? Confusion ??? Drowsiness or trouble waking up ??? Fainting ??? Rapid heart rate ??? Seizure ??? New chest pain that becomes more severe, lasts longer, or spreads into your shoulder, arm, neck, jaw, or back Call or text 988 if you have thoughts of harming yourself or others. You will be connected to trained crisis counselors at the National Suicide Prevention Lifeline. An online chat option is also available at www.suicidepreventionSwagsyline.org. You can also call Lifeline at 087-707-ZEUJ (110-958-2924).Lifeline is free and available 24/09. ?? When to get medical advice Call your healthcare provider right away if any of the following occur: ??? Symptoms that don't improve or get worse, such as feelings of hopelessness or overwhelming sadness ??? Severe headache not eased by rest and mild pain medicine The National Suicide Prevention Lifeline is available at 745-472-EHTU (485-104-1374). The Lifeline is available 24/09 and provides free and confidential support. The Lifeline also has an online chat at www.suicideXL Video.org. ?? Last Reviewed Date: 2021 ?? [employer]. All rights reserved. This information is not intended as a substitute for professional medical care. Always follow your healthcare professional's instructions. ?? Patient Care team information Care Team PersonnelName: Rashad Hamm RN Position: [facility] SN RN Member Role: Primary Care Nurse Name: Merline Ragsdale MD Position: Reference Physician Member Role: PCP Address: Address: [address] [place] [address] Name: *[facility], ED Attending Position: [facility] ED Attendings Patient Name: Deborah Alvarez Position: [facility] ED TA [facility] Member Role: Plsql Developer Name: Sophie Muhammad RN Position: [facility] ED RN W/OE and Tasks Member Role: Patient Care Provider Name: Dread Soria MD Position: [facility] ED Medicine MD Member Role: Admitting Physician Address: Address: [address] [place] [address] Palliative [place] [address]- Care Team Related PersonsName: JULIANA PRECIADO Address: [place] [address] Name: RAMONA PICHARDO Address: home [address] [place] [address] Name: NONE, REQUESTED Name: KRYSTIN SOSA Address: home [address] [place] [address]
--- OUTSIDE RECORDS SUMMARY | 2022-04-17 22:46 | XMS_ITS | Continuity of Care Document ---
:1990 Author Organization [facility] Address [address] [place] [address]- Care Team Providers Name Role Phone Chika Boswell MD Primary Care Physician Encounter [facility] Date(s): 03/10/22 - 03/10/[address] [address]- Discharge Disposition: A-D/C Home Attending Physician: Clifford Slaughter MD Admitting Physician: Clifford Slaughter MD Referring Physician: Not on Staff, Referring [...] Refills, Maintenance, 07/22/20 9:31:00 EDT, [facility], [id number], Partial fill upon patient request if the prescription is for a schedule II opioid drug., 183, cm, 01/06/20 13:59:00 EST,... Start Date: 07/22/20 Stop Date: 08/21/20 Status: Ordered Results Radiology Reports Exam Date Time Procedure Performing Provider Status 03/10/22 1:24 PM Chest 2 Views Frontal and Lat Sharmaine Turcios ie R; Auth (Verified) Notes:(Chest 2 Views Frontal and Lat) Reason For Exam: Chest Pain;Other:RESULT: Chest 2 Views Frontal and Lat Chest 2 Views Frontal and Lat INDICATION: left-sided chest pain. COMPARISON: None. FINDINGS: LINES AND TUBES: None. LUNGS AND PLEURA: Clear lungs. Normal pulmonary vascularity. No pleural effusion. No pneumothorax. HEART, MEDIASTINUM AND DANIELLE: Heart is normal in size. Normal mediastinal and hilar contour. BONES AND SOFT TISSUES: No acute abnormality. IMPRESSION: No acute abnormality. WSN: [id number] Ordering Physician: Asael Damon Dictated By: Killian De León MD Dictated Date/Time: 03/10/22 3:22 pm Reviewed By: Killian De León MD Signed By: Killian De León MD Signed Date/Time: 03/10/22 3:22 pm Transcribed By: RADHA Transcribed Date/Time: 03/10/22 3:22 pm Vital Signs Most recent to oldest [Reference Range]: 1 2 Height 178 cm (03/10/22 1:10 PM) Weight 90.9 kg (03/10/22 1:10 PM) Oxygen Saturation [94-100 %] 98 % 98 % (03/10/22 3:00 PM) (03/10/22 1:10 PM) Pulse Rate [55-90 bpm] 70 bpm 65 bpm (03/10/22 3:00 PM) (03/10/22 1:10 PM) Blood Pressure [90-138/55-84 mm Hg] 158/72 mm Hg 165/ 94 mm Hg *H* *H* (03/10/22 3:00 PM) (03/10/22 1:10 PM) Respiratory Rate [16-30 br/min] 18 br/min 18 br/mi n (03/10/22 3:00 PM) (03/10/22 1:10 PM) Temperature [96.8-100.4 DegF] 97.7 DegF (03/10/22 1:10 PM) Mode of Delivery (Oxygen) Room air (03/10/22 1:10 PM) Temperature Route Oral (03/10/22 1:10 PM) Dry Weight 90.9 kg (03/10/22 1:10 PM) Social History Social History Type Response Smoking Status Current every day smoker entered on: 10/20/14 Sex Note Kasandra MD, Clifford B: PERFORM Event Display: Patient Education Leaflets Authored Date: [id number] Uncertain Causes of Chest Pain ?? [id number] Uncertain Causes of Chest Pain Chest pain can happen for a number of reasons. Sometimes the cause can't be determined. If your??condition does not seem serious, and your pain does not appear to be coming from your heart, your healthcare provider may recommend watching it closely. Sometimes the signs of a serious problem take more time to appear. Many problems not related to your heart can cause chest pain. These include: ??? Musculoskeletal. Costochondritis is an inflammation of the tissues around the ribs that can occur from trauma or overuse injuries, or a strain of the muscles of the chest wall. ??? Respiratory. Pneumonia, collapsed lung (pneumothorax), or inflammation of the lining of the chest and lungs (pleurisy). ??? Gastrointestinal. Esophageal reflux, heartburn, ulcers, or gallbladder disease. ??? Anxiety and panic disorders ??? Nerve compression and inflammation ??? Rare problems such as aortic aneurysm or aortic dissection (a swelling of the large artery coming out of the heart or a tear in the wall of the artery), or pulmonary embolism (a blood clot in the lungs). Home care After your visit, follow these recommendations: ??? Rest today and avoid strenuous activity. ??? Take any prescribed medicine as directed. ??? Be aware of any recurrent chest pain and notice any changes ?? Follow-up care Follow up with your healthcare provider if you don't start to feel better within 24 hours, or as advised. ?? Call 911 Call 911 if any of these occur: ??? A change in the type of pain: if it feels different, becomes more severe, lasts longer, or begins to spread into your shoulder, arm, neck, jaw or back ??? Shortnessof breath or increased pain with breathing ??? Weakness, dizziness, or fainting ??? Rapid heartbeat ??? Crushing sensation in your chest ??? Coughing up more than a small amount of blood. ?? When to seek medical advice Call your healthcare provider right away if any of the following occur: ??? Cough with dark coloredsputum (phlegm) or small amount of blood ??? Fever of 100.4??F??(38??C) or higher, or as directed byyour healthcare provider ??? Swelling, pain or redness in one leg ?? Last Reviewed Date: 2021 ?? [id number] [employer]. All rights reserved. This information is not intended as a substitute for professional medical care. Always follow your healthcare professional's instructions. ??BHSPowerscribe , CIS S: TRANSCRIBE Killian De León MD: VERIFY Event Display: Result: Authored Date: [id number] Chest 2 Views Frontal and Lat INDICATION: left-sided chest pain. COMPARISON: None. FINDINGS: LINES AND TUBES: None. LUNGS AND PLEURA: Clear lungs. Normal pulmonary vascularity. No pleural effusion. No pneumothorax. HEART, MEDIASTINUM AND DANIELLE: Heart is normal in size. Normal mediastinal and hilar contour. BONES AND SOFT TISSUES: No acute abnormality. IMPRESSION: No acute abnormality. WSN: [id number] Ordering Physician: Asael Damon Dictated By: Killian De León MD Dictated Date/Time: 03/10/22 3:22 pm Reviewed By: Killian De León MD Signed By: Killian De León MD Signed Date/Time: 03/10/22 3:22 pm Transcribed By: RADHA Transcribed Date/Time: 03/10/22 3:22 pm Patient Care team information Care Team PersonnelName: Rashad Hamm RN Position: [facility] RN Member Role: Primary Care Nurse Name: Chika Boswell MD Position: [facility] Primary Care Physician Member Role: PCP Address: Address: [address] [place] [address] [place] [address]- Name: Clifford Slaughter MD Position: [facility] ED Medicine MD Member Role: Admitting Physician Address: Address: [address] [place] [address] [place] [address]- Care Team Related PersonsName: JULIANA PRECIADO Address: [place] [address] Name: NONE, REQUESTED Name: KRYSTIN SOSA Address: [address] [address]
--- NOTE | 2022-04-17 22:57 | ED.ABDPAIN ---
HPI - Abdominal Pain General Chief Complaint: Abdominal Pain Stated Complaint: abd pain/ lump under neck Time Seen by Provider: 04/17/22 22:37 Source: patient Mode of arrival: ambulatory Limitations: no limitations History of Present Illness HPI narrative: This is a 32-year-old male history of hepatitis C, IV drug abuse presents to the emergency department with 1 month of abdominal pain, constipation (tells me last bowel movement was 2 weeks ago), right-sided flank pain, telling his skin feels ?weird ?, anxiety. Patient tells me this is not the 1st time he has been evaluated for this, he tells me he has gone to multiple hospitals, last hospital he went to was here 2 days ago, he tells me every hospital he goes to tells him he is crazy he has had multiple labs, urine, CT scans all of which have been normal. Patient tells me he is back because he knows something is not right. Upon my history taking patient extremely anxious. He denies any previous abdominal surgeries. He denies chest pain, shortness of breath, nausea, vomiting, fevers, chills, recent sick contacts, headache, vision changes, dizziness or weakness. He denies SI and HI. Related Data Allergies Allergy/AdvReac Type Severity Reaction Status Date / Time red dye [RED DYE] Allergy Severe THROAT Verified 04/17/22 21:14 SWELLING, ITCHY RASH diphenhydramine Allergy Intermediate HIVES Verified 04/17/22 21:14 [From BENADRYL] Review of Systems Review of Systems Constitutional : No Weight loss, No Fever, No Chills, No Fatigue, No Malaise ENT/Mouth : No sore throat, No Rhinorrhea Eyes: No Eye Pain, No Swelling, No Redness Cardiovascular : No Chest Pain, No SOB, No Dyspnea on Exertion, No Orthopnea, No Edema, No Palpitations Respiratory : No Cough, No Sputum, No Wheezing Gastrointestinal : No Nausea, No Vomiting, No Diarrhea, + Constipation, + abdominal Pain, No Hematochezia, No Melena Genitourinary : No Dysuria, No Urinary Frequency, No Hematuria, Musculoskeletal : No joint pain, No Myalgias, No Joint Swelling, + flank pain Skin : No Skin Lesions, No rash Neuro : No Weakness, No Numbness, No Dizziness, No Headache Psych : + Anxiety/Panic, No Depression All other systems reviewed and are negative Yes all other systems are reviewed and are negative [facility] Past Medical History Attestation statement: The following information was validated with the patient. Source: old records reviewed and nursing notes reviewed Social History Social History Advance Directives: No Advance Directives Information Provided: No Physical Exam ED Vital Signs: Vital Signs - 24 hr 04/17/22 21:10 Temperature 98.4 F Pulse Rate 70 Respiratory Rate 18 Blood Pressure 147/82 H Pulse Oximetry 99 Oxygen Delivery Method Room Air BMI result Body Mass Index 27.1 Vital signs stable Appearance: Alert.? Oriented X3.? No acute distress.? Head: Normocephalic, atraumatic, no step-offs or deformities Eyes: Pupils equal, round and reactive to light.? ENT: Pharynx normal.? Neck: Normal inspection.? Neck supple.? CVS: Normal heart rate and rhythm.? Pulses normal.? No murmur Respiratory: No respiratory distress.? Breath sounds normal.? Abdomen: Soft and nontender.? Normoactive bowel sounds. Skin: Skin warm and dry.? Normal skin color.? Normal skin turgor.? Extremities: No lower extremity edema.? No calf ttp. 5/5 strength to bilateral upper and lower extremities Back: No CVA tenderness Neuro: Oriented X 3.? No motor deficit.? No sensory deficit. CN 2-12 intact Course Reevaluation(s) Reevaluation #1: CBC with no acute findings requiring intervention. Chemistry unremarkable. Normal lipase. UA without infection. CT of the abdomen and pelvis no acute findings in the abdomen or pelvis. No inflammatory changes. At this time patient will be discharged home advised him to follow-up with GI. And advised to follow-up with his PCP. At time of discharge patient reports slight improvement in symptoms. Patient tolerating p.o.. Would like to go home. Educated patient on diagnosis and treatment plan, answered all question, patient verbalizes understanding. At this time patient will be discharged home, advised to return with new or worsening symptoms. Educated on worrisome signs and symptoms and when to return. At this time I feel comfortable discharge home. Time: 00:10 Medical Decision Making Medical Decision Making [facility] Narrative: [id number] 32-year-old male presents with abdominal pain, constipation, right-sided flank pain, anxiety times a month. States that he has been seen at multiple hospitals for this. Upon chart review it appears as though patient presented here on 04/15/2022 with similar complaints that time he had a normal plain film x-ray and normal EKG. Labs are essentially unremarkable. Physical examination benign. Patient well-appearing however anxious. Vital signs stable. I was unable to visualize lump in right anterior chest. Likely anxiety. I do not suspect bowel obstruction, acute abdomen, pyelonephritis, UTI. Other differentials include right-sided musculoskeletal pain in the flank region. Patient could have abnormal bowel movements consistent with constipation however I do not suspect an obstructive process. Plan at this time labs, urine, imaging. Differential Diagnosis Differential Diagnoses: The differential diagnosis associated with the presentation includes Likely anxiety. I do not suspect bowel obstruction, acute abdomen, pyelonephritis, UTI. Other differentials include right-sided musculoskeletal pain in the flank region. Patient could have abnormal bowel movements consistent with constipation however I do not suspect an obstructive process. Admission/Observation Consideration of admission/observation: Escalation of care including admission/observation considered Unlikely Lab Data MDM Lab Attestation statement: I reviewed the patient's lab results. 04/17/22 21:48 04/17/22 21:48 Labs: Lab Results 04/17/22 04/17/22 04/17/22 Range/Units 21:48 21:48 21:48 WBC 7.2 (4.8-10.8) X10*3/uL RBC 5.07 (4.60-5.80) X10*6/uL Hgb 15.1 (14.0-18.0) g/dl Hct 42.5 (42.0-52.0) % MCV 83.8 (80.0-98.0) fL MCH 29.8 (27.0-33.0) pg MCHC 35.5 (31.0-36.0) g/dl RDW 11.7 (11.0-16.0) % Plt Count 171 (160-400) X10*3/uL MPV 12.3 (9.4-12.4) fL Immature Gran % (Auto) 0.3 (0.0-0.4) % Neut % (Auto) 62.6 (45-73) % Lymph % (Auto) 26.9 (20-40) % [place] % (Auto) 7.5 (2-11) % Eos % (Auto) 2.1 (0-4) % Baso % (Auto) 0.6 (0-2) % Lymph # (Auto) 2.0 (1.2-4.9) X10*3/uL [place] # (Auto) 0.5 (0.1-1.2) X10*3/uL Eos # (Auto) 0.2 (0.0-0.4) X10*3/uL Baso # (Auto) 0.0 (0.0-0.2) X10*3/uL Abs Immat Gran (auto) 0.02 (0.00-0.03) X10*3/uL Absolute Neuts (auto) 4.5 (2.0-8.3) x10*3/uL Absolute Nucleated RBC 0.000 (0.0-0.012) X10*3/uL Nucleated RBC % (auto) 0.0 (0.0-0.2) /100WBC Sodium 140 (135-145) mmol/L Potassium 4.2 (3.3-5.1) mmol/L Chloride 102 (96-108) mmol/L Carbon Dioxide 28 (22-29) mmol/L Anion Gap 14 (12-20) BUN 9 (9-16) mg/dL Creatinine 1.02 (0.5-1.4) mg/dL Estim Creat Clear Calc 113.0 Estimated GFR > 60 Random Glucose 100 (60-115) mg/dL Calcium 9.7 (8.4-10.2) mg/dL Total Bilirubin 0.6 (0.0-1.0) mg/dL Direct Bilirubin 0.2 (0.0-0.5) mg/dL AST 25 (5-37) U/L ALT 41 H (0-40) U/L Alkaline Phosphatase 44 (39-117) U/L Total Protein 7.2 (6.5-8.0) g/dL Albumin 4.6 (3.5-5.0) g/dL Lipase 17 (8-78) U/L Urine Color Yellow Urine Appearance Clear Urine pH 7.5 (5.0-9.0) Ur Specific [place] 1.010 (1.005-1.025) Urine Protein Negative (Neg-Trace) mg/dL Urine Glucose (UA) Negative (Negative) mg/dL Urine Ketones Negative (Negative) mg/dL Urine Blood Negative (Negative) Urine Nitrite Negative (Negative) Ur Leukocyte Esterase Negative (Negative) Core Measures AMI core measures followed: Yes Measure exclusions: not indicated Critical Care Time Critical Care Time Critical Care Time: No Discharge Plan Discharge Clinical Impression: Abdominal pain, Right flank pain, Bowel habit changes, Anxiety Patient Disposition: Home, Self-Care Instructions: Abdominal Pain (ED), Flank Pain (ED) Additional Instructions: Take your medications as prescribed. If you were prescribed antibiotics today, it is important that you take your medication to their entirety, do not skip any doses, do not finish them early. Follow-up with your primary care provider this week. Return to the emergency department with new or worsening symptoms. Such as fevers, chills, chest pain, shortness of breath, nausea, vomiting, dizziness, headache, vision changes, lethargy In case of emergency call 911 Follow-up with gastroenterology for abdominal discomfort that is been going on for while. Return to the emergency department with new or worsening symptoms. CT/CT abdomen pelvis wo IV con IMPRESSION: No acute findings in the abdomen or pelvis. No inflammatory changes. ? Fleischner guidelines were followed. Referrals: Merline Ragsdale MD [Primary Care Provider] - 2 days Stand Alone Forms: Work/School Release
[2022-04-18 00:11] VITALS: BP 136/74; PULSE 57; RESP 16; TEMP 36.7; O2SAT 100
[2022-04-18] MEDS: Ketorolac Tromethamine 15 MG/ML VIAL 30 MG IM (00:17)
== END 2022-04-18 00:23 | disposition home or self-care (01) ==
PROVIDERS: Emergency Provider Internal Medicine; PCP Internal Medicine
DX: R10.9 Unspecified abdominal pain (principal); F41.1 Generalized anxiety disorder; F43.0 Acute stress reaction; Z79.899 Other long term (current) drug therapy
CPT/HCPCS: 36415; 74176; 80048; 80076; 81003; 83690; 85025; 96372; 99283; 99284; J1885

== ENCOUNTER 2022-06-05 23:28 | Emergency (ER) | payer OTHER, SELFPAY ==
[2022-06-05 23:52] VITALS: BP 126/65; PULSE 77; RESP 18; O2SAT 97; BMI 28.5
[2022-06-06 00:12] LABS: MANUAL DIFF FLAG NO
[2022-06-06 00:15] VITALS: BP 132/60; PULSE 73; RESP 18; TEMP 36.8; O2SAT 99
[2022-06-06 00:15] LABS: Appearance Urine Clear; Basophils Percent Auto 0.5 % (0-2); Color Urine Yellow; Eosinophils Absolute Auto 0.5 X10*3/uL (0.0-0.4); Eosinophils Percent Auto 6.1 % (0-4); Glucose Urine UA Negative (Negative); Hematocrit 41.9 % (42.0-52.0); Hemoglobin 14.9 g/dl (14.0-18.0); Imm Gran Abs Auto 0.04 X10*3/uL (0.00-0.03); Imm Gran Pct Auto 0.5 % (0.0-0.4); Leukocyte Esterase Urine Negative (Negative); Lymphocytes Absolute Auto 2.1 X10*3/uL (1.2-4.9); Lymphocytes Percent Auto 28.9 % (20-40); Mean Corpuscular HGB Conc 35.6 g/dl (31.0-36.0); Mean Corpuscular Hemoglobin 29.7 pg (27.0-33.0); Mean Corpuscular Volume 83.6 fL (80.0-98.0); Mean Platelet Volume 12.1 fL (9.4-12.4); Monocytes Absolute Auto 0.7 X10*3/uL (0.1-1.2); Monocytes Percent Auto 8.8 % (2-11); Neutrophils Absolute Auto 4.1 x10*3/uL (2.0-8.3); Neutrophils Percent Auto 55.2 % (45-73); Nitrite Urine Negative (Negative); Platelet Count 163 X10*3/uL (160-400); Red Blood Count 5.01 X10*6/uL (4.60-5.80); Red Cell Distribution Width 11.4 % (11.0-16.0); Specific Gravity - Urine >= 1.030 (1.005-1.025); Urine Blood Negative (Negative); Urine Ketones Trace mg/dL (Negative); Urine Protein Negative (Neg-Trace); White Blood Count 7.4 X10*3/uL (4.8-10.8)
[2022-06-06 00:20] LABS: Bacteria Urine None Seen (None Seen); Hyaline Casts Urine 0-2 /LPF (0-2); RBC Urine 0-2 /HPF (0-2); Squamous Epithelial Cell Urine 0-2 /HPF (0-2); WBC Urine 0-5 /HPF (0-5)
[2022-06-06 00:30] LABS: Alanine Aminotransferase 35 U/L (0-40); Albumin Level 4.3 g/dL (3.5-5.0); Alkaline Phosphatase 51 U/L (39-117); Anion Gap 11 (12-20); Aspartate Amino Transferase 70 U/L (5-37); Bilirubin Total 0.6 mg/dL (0.0-1.0); Blood Urea Nitrogen 20 mg/dL (9-16); Calcium 9.1 mg/dL (8.4-10.2); Carbon Dioxide 27 mmol/L (22-29); Chloride 105 mmol/L (96-108); Creatinine Clr Calc Pharmacy 122.1; Estimated Glomerular Filt Rate > 60; Glucose Random 83 mg/dL (60-115); Potassium 4.3 mmol/L (3.3-5.1); Sodium 139 mmol/L (135-145); Total Protein 6.7 g/dL (6.5-8.0)
--- OUTSIDE RECORDS SUMMARY | 2022-06-06 00:31 | XMS_ITS | Continuity of Care Document ---
Author Name Unknown Organization [facility] [place] Address [address] [place] [address]- Care Team Providers Care Armature Tester Name Role Phone Not on Staff, PCP Primary Care Physician Unavail able Encounter [facility] Date(s): 04/12/22 - 05/12/22 [facility] [place] [address] [place] [address]- Allergies, Adverse Reactions, Alerts Substance Reaction Severity Status Benadryl 1 Persistent Severe Active iodine Active 1anaphylaxis Medications gabapentin 300 mg oral capsule 300 mg, 1, capsule, By Mouth, 2 times a day, Refills 0, Maintenance, 01/06/20 13:59:00 EST Start Date: 01/06/20 Status: Ordered Harvoni 90 mg-400 mg oral tablet 1 tablet, By Mouth, Daily, for 8 week(s), # 56 tablet, 0 Refills, Acute 06/13/22 10:07:00 EDT, 04/18/22 10:07:00 EST, Tablet, [id number], Partial fill upon patient request if the prescriptionis for a schedule II opioid drug., 1 tablet By Mout... Start Date: 04/18/22 Stop Date: 06/13/22 Status: Ordered NuLYTELY with Flavor Packs oral powder for reconstitution 240 mL, By Mouth, Every 10 minutes, # 1 each, 0 Refills, Maintenance, 05/02/22 8:41:00 EST, REC Powder, [id number], Partial fill upon patient request if the prescription is for a schedule II opioid drug., 240 mL By Mouth Every 10 minutes, 183,... Start Date: 05/02/22 Status: Ordered omeprazole 20 mg oral delayed release tablet 1 tablet = 20 mg, By Mouth, Daily, # 30 tablet, 0 Refills, Maintenance, 03/31/22 0:44:00 EST, EC Tablet, [facility] #[id number], Partial fill upon patient request if the prescription is for a schedule IIopioid drug., 183, cm, 03/30/22 23:43:00 EST, Heigh... Start Date: 03/31/22 Status: Ordered Suboxone 4 mg-1 mg sublingual film 1 film, Sublingual, Daily, dissolve under the tongue, 0 Refills, Maintenance, 01/06/20 13:59:00 EST, Film Start Date: 01/06/20 Status: Ordered Vyvanse 40 mg oral capsule 1 capsule = 40 mg, By Mouth, Daily in AM, # 30 capsule, 0 Refills, Maintenance, 07/22/20 9:31:00 EDT, Capsule, [id number], Partial fill upon patient request if the prescription is for a schedule II opioid drug., 183, cm, 01/06/20 13:59:00 EST,... Start Date: 07/22/20 Stop Date: 08/21/20 Status: Ordered Social History Social History Type Response Smoking Status Current every day josey vasquez entered on: 10/20/14 Sex Patient Care team information Care Team Personnel Name: Rasahd Hamm RN Position: [facility] SN RN Member Role: Primary Care Nurse Name: Not on Staff, PCP Position: [facility] Physician (General Medicine) Member Role: PCP Care Team Related Persons Name: JULIANA PRECIADO Address: [place] [address] Name: RAMONA PICHARDO Address: [address] [address] Name: NONE, REQUESTED Name: KRYSTIN SOSA Address: [address] [address]
--- OUTSIDE RECORDS SUMMARY | 2022-06-06 00:31 | XMS_ITS | Continuity of Care Document ---
Author Name Unknown Organization [facility] [place] Address [address] [place] [address]- Care Team Providers Care Anchor Tacker Name Role Phone Not on Staff, PCP Primary Care Physician Unavail able Encounter [facility] Date(s): 03/28/22 - 04/27/22 [facility] [place] [address] [place] [address]- Allergies, Adverse Reactions, Alerts Substance Reaction Severity [...] minutes, # 1 each, 0 Refills, Maintenance, 04/18/22 10:20:00 EST, REC Powder, [id number], Partial fill upon patient request if the prescription is for a schedule IIopioid drug., 240 mL By Mouth Every 10 minutes, 183... Start Date: 04/18/22 Status: Ordered omeprazole 20 mg oral delayed [...] Care team information Care Team Personnel Name: Rashad Hamm RN Position: [facility] SN RN Member Role: Primary Care Nurse Name: Not on Staff, PCP Position: [facility] Physician (General Medicine) Member Role: PCP Care Team Related Persons Name: JULIANA PRECIADO Address: [place] [address] Name: RAMONA PICHARDO Address: [address] [address] Name: NONE, REQUESTED Name: KRYSTIN SOSA Address: [address] [address]
--- OUTSIDE RECORDS SUMMARY | 2022-06-06 00:31 | XMS_ITS | Continuity of Care Document ---
Author Name Unknown Organization [facility] [place] Address [address] [place] [address]- Care Team Providers Care Fruit Peeler Name Role Phone Not on Staff, PCP Primary Care Physician Unavail able Encounter [facility] Date(s): 05/01/22 - 05/31/22 [facility] [place] [address] [place] [address]- Allergies, Adverse Reactions, Alerts Substance Reaction Severity [...] Refills, Maintenance, 03/31/22 0:44:00 EST, EC Tablet, [facility]/pharmacy #[id number], Partial fill upon [...] 0 Refills, Maintenance, 07/22/20 9:31:00 EDT, Capsule, [facility]/pharmacy #[id number], Partial fill upon patient request if the prescription is for a schedule II opioid drug., 183, cm, 01/06/20 13:59:00 EST,... Start Date: 07/22/20 Stop Date: 08/21/20 Status: Ordered Social History Social History Type Response Smoking Status Current every day josey vasquez entered on: 10/20/14 Sex Patient Care team information Care Team Personnel Name: Rashad Hamm RN Position: [facility] SN RN Member Role: Primary Care Nurse Name: Not on Staff, PCP Position: [facility] Physician (General Medicine) Member Role: PCP Care Team Related Persons Name: JULIANA PRECIADO Address: [place] [address] Name: RAMONA PICHARDO Address: [address] [address] Name: NONE, REQUESTED Name: KRYSTIN SOSA Address: [address] [address]
--- OUTSIDE RECORDS SUMMARY | 2022-06-06 00:31 | XMS_ITS | Continuity of Care Document ---
Author Name Unknown Organization [facility] [place] Address [address] [place] [address]- Care Team Providers Care Fast Food Cashier Name Role Phone Not on Staff, PCP Primary Care Physician Unavail able Encounter [facility] Date(s): 04/12/22 - 05/12/22 [facility] [place] [address] [place] [address]- Allergies, Adverse Reactions, Alerts Substance Reaction Severity [...] Refills, Maintenance, 03/31/22 0:44:00 EST, EC Tablet, [facility]/pharmacy #[id number], Partial fill upon patient request [...] 0 Refills, Maintenance, 07/22/20 9:31:00 EDT, Capsule, [facility]/pharmacy #[id number], Partial fill upon patient request if the prescription is for a schedule II opioid drug., 183, cm, 01/06/20 13:59:00 EST,... Start Date: 07/22/20 Stop Date: 08/21/20 Status: Ordered Social History Social History Type Response Smoking Status Current every day josey vasquez entered on: 10/20/14 Sex Patient Care team information Care Team Personnel Name: Rashad Hamm RN Position: [facility] SN RN Member Role: Primary Care Nurse Name: Not on Staff, PCP Position: [facility] Physician (General Medicine) Member Role: PCP Care Team Related Persons Name: JULIANA PRECIADO Address: [place] [address] Name: RAMONA PICHARDO Address: [address] [address] Name: NONE, REQUESTED Name: KRYSTIN SOSA Address: home [address] [place] [id number]
--- OUTSIDE RECORDS SUMMARY | 2022-06-06 00:31 | XMS_ITS | Continuity of Care Document ---
Author Name Unknown Organization [facility] [place] Address [address] [place] [address]- Care Team Providers Care Plant Maintenance Supervisor Name Role Phone Not on Staff, PCP Primary Care Physician Unavail able Encounter [facility] Date(s): 04/13/22 - 05/13/22 [facility] [place] [address] [place] [address]- Allergies, Adverse Reactions, Alerts Substance Reaction Severity [...] Refills, Maintenance, 03/31/22 0:44:00 EST, EC Tablet, [facility]/pharmacy #[id number], Partial fill upon patient [...] 0 Refills, Maintenance, 07/22/20 9:31:00 EDT, Capsule, [facility]/pharmacy #[id number], Partial fill upon patient request if the prescription is for a schedule II opioid drug., 183, cm, 01/06/20 13:59:00 EST,... Start Date: 07/22/20 Stop Date: 08/21/20 Status: Ordered Social History Social History Type Response Smoking Status Current every day josey vasquez entered on: 10/20/14 Sex Patient Care team information Care Team Personnel Name: Rashad Hamm RN Position: [facility] SN RN Member Role: Primary Care Nurse Name: Not on Staff, PCP Position: [facility] Physician (General Medicine) Member Role: PCP Care Team Related Persons Name: JULIANA PRECIADO Address: [place] [address] Name: RAMONA PICHARDO Address: [address] [address] Name: NONE, REQUESTED Name: KRYSTIN SOSA Address: [address] [address]
--- NOTE | 2022-06-06 00:36 | ED.MALEGU ---
HPI - Male Genitourinary General Chief complaint: Urogenital-Male Stated complaint: side and back pain, testicle pain Time Seen by Provider: 06/06/22 00:26 Source: patient Mode of arrival: ambulatory Limitations: no limitations History of Present Illness HPI Narrative: Patient has chronic abdominal pain followed by GI had endoscopy taking Harvoni for hepatitis-C treatment plan Navjot asked appy has taken dicyclomine for IBS comes here for diffuse abdominal pain back pain now says for last few days has pain in the L testicle patient was also diagnosed with anxiety. Denies any urinary complaints denies any hematuria no history of kidney stone no history of STD Related Data Previous Rx's Medication Instructions Recorded dicyclomine 20 mg tablet 20 mg PO QID PRN abdominal pain 06/06/22 #20 tabs Allergies Allergy/AdvReac Type Severity Reaction Status Date / Time red dye [RED DYE] Allergy Severe THROAT Verified 06/05/22 23:52 SWELLING, ITCHY RASH diphenhydramine Allergy Intermediate HIVES Verified 06/05/22 23:52 [From BENADRYL] Review of Systems Review of Systems: Yes all other systems are reviewed and are negative [facility] Social History Social History Advance Directives: No Advance Directives Information Provided: Yes Physical Exam Vital Signs: Vital Signs: Last Vital Signs Temp 98.2 F 06/06/22 00:15 Pulse 73 06/06/22 00:15 Resp 18 06/06/22 00:15 BP 132/60 06/06/22 00:15 Pulse Ox 99 06/06/22 00:15 O2 Del Method Room Air 06/06/22 00:15 BMI result Body Mass Index 28.5 Appearance: Alert. Oriented X3. No acute distress. Eyes: No pallor or icterus ENT: Pharynx normal. Oral Mucosa moist Neck: Normal inspection. Neck supple. CVS: Normal heart rate and rhythm. Pulses normal. Respiratory: No respiratory distress. Equal air entry bilateral, no wheezing/rales/rhonchi Abdomen: Soft , diffuse tenderness no focal tenderness no rebound tenderness or guarding Bowel sounds are present, no mass palpable, no CVA tenderness Skin: Skin warm and dry. Normal skin color. Normal skin turgor. Extremities: No lower extremity edema. No calf tenderness Neuro: Oriented X 3. No motor deficit. No sensory deficit.No cerebellar signs , cranial nerves II-XII intact Medical Decision Making Lab Data 06/06/22 00:08 06/06/22 00:08 Labs: Lab Results 06/06/22 06/06/22 06/06/22 Range/Units 00:08 00:08 00:08 WBC 7.4 (4.8-10.8) X10*3/uL RBC 5.01 (4.60-5.80) X10*6/uL Hgb 14.9 (14.0-18.0) g/dl Hct 41.9 L (42.0-52.0) % MCV 83.6 (80.0-98.0) fL MCH 29.7 (27.0-33.0) pg MCHC 35.6 (31.0-36.0) g/dl RDW 11.4 (11.0-16.0) % Plt Count 163 (160-400) X10*3/uL MPV 12.1 (9.4-12.4) fL Immature Gran % (Auto) 0.5 H (0.0-0.4) % Neut % (Auto) 55.2 (45-73) % Lymph % (Auto) 28.9 (20-40) % [place] % (Auto) 8.8 (2-11) % Eos % (Auto) 6.1 H (0-4) % Baso % (Auto) 0.5 (0-2) % Lymph # (Auto) 2.1 (1.2-4.9) X10*3/uL [place] # (Auto) 0.7 (0.1-1.2) X10*3/uL Eos # (Auto) 0.5 H (0.0-0.4) X10*3/uL Baso # (Auto) 0.0 (0.0-0.2) X10*3/uL Abs Immat Gran (auto) 0.04 H (0.00-0.03) X10*3/uL Absolute Neuts (auto) 4.1 (2.0-8.3) x10*3/uL Absolute Nucleated RBC 0.000 (0.0-0.012) X10*3/uL Nucleated RBC % (auto) 0.0 (0.0-0.2) /100WBC Sodium 139 (135-145) mmol/L Potassium 4.3 (3.3-5.1) mmol/L Chloride 105 (96-108) mmol/L Carbon Dioxide 27 (22-29) mmol/L Anion Gap 11 L (12-20) BUN 20 H (9-16) mg/dL Creatinine 1.03 (0.5-1.4) mg/dL Estim Creat Clear Calc 122.1 Estimated GFR > 60 Random Glucose 83 (60-115) mg/dL Calcium 9.1 D (8.4-10.2) mg/dL Total Bilirubin 0.6 (0.0-1.0) mg/dL AST 70 H (5-37) U/L ALT 35 (0-40) U/L Alkaline Phosphatase 51 (39-117) U/L Total Protein 6.7 (6.5-8.0) g/dL Albumin 4.3 (3.5-5.0) g/dL Urine Color Yellow Urine Appearance Clear Urine pH 6.0 (5.0-9.0) Ur Specific [place] >= 1.030 H (1.005-1.025) Urine Protein Negative (Neg-Trace) mg/dL Urine Glucose (UA) Negative (Negative) mg/dL Urine Ketones Trace (Negative) mg/dL Urine Blood Negative (Negative) Urine Nitrite Negative (Negative) Ur Leukocyte Esterase Negative (Negative) Urine RBC 0-2 (0-2) /HPF Urine WBC 0-5 (0-5) /HPF Ur Squamous Epith Cells 0-2 (0-2) /HPF Urine Bacteria None Seen (None Seen) Hyaline Casts 0-2 (0-2) /LPF Discharge Plan Discharge Clinical Impression: Irritable bowel syndrome Patient Disposition: Home, Self-Care Instructions: Irritable Bowel Syndrome (ED) Additional Instructions: Follow-up with sports intern as scheduled Dicyclomine 1 tablet at hours as abdominal discomfort Prescriptions: New dicyclomine 20 mg tablet 20 mg PO QID PRN (Reason: abdominal pain) Qty: 20 0RF
[2022-06-06] MEDS: Dicyclomine HCl 10 MG CAPSULE 20 MG PO (01:15)
== END 2022-06-06 01:20 | disposition home or self-care (01) ==
PROVIDERS: Emergency Provider Internal Medicine; PCP Internal Medicine
DX: K58.9 Irritable bowel syndrome, unspecified (principal); N50.812 Left testicular pain; F41.9 Anxiety disorder, unspecified
CPT/HCPCS: 36415; 80053; 81001; 85025; 99283; 99284

== ENCOUNTER 2022-08-10 19:42 | Emergency (ER) | payer OTHER, SELFPAY ==
--- NOTE | ~2022-08-10 | CT_ITS ---
EXAMINATION: CT ABDOMEN AND PELVIS WITHOUT CONTRAST CLINICAL INFORMATION: Abdominal pain, status endoscopy/colonoscopy. COMPARISON: CT abdomen 04/17/2022. TECHNIQUE: Multidetector volumetric imaging was performed from the superior aspect of the liver through the pubic symphysis. Sagittal and coronal reformatted images were obtained on the technologist's workstation. This CT examination was performed using dose optimization techniques as appropriate, variously including the following: *Automated exposure control *Adjustment of mA and/or kV according to patient size (this includes techniques or standardized protocols for targeted exams where dose is matched to indication/reason for exam; i.e. extremities or head) *Use of iterative reconstruction technique DLP: 518 mGy-cm FINDINGS: The lack of intravenous contrast limits evaluation of the solid visceral organs including the liver, spleen, pancreas, and kidneys. LUNG BASES: Multiple sub-5 mm pulmonary nodules, for instance in the left lower lobe on image 25 and right middle lobe image 7, series 3. A few triangularly shaped peripherally fissural nodules are noted, favoring to represent lymph nodes. Bibasilar subsegmental atelectases. No focal consolidation or pleural effusion. LIVER, GALLBLADDER, AND BILIARY TREE: The noncontrast liver is normal in size, shape, and attenuation. No focal hepatic lesion or biliary ductal dilatation is present. The gallbladder is unremarkable with no evidence of radiopaque gallstones, gallbladder wall thickening, or obvious pericholecystic inflammatory changes. PANCREAS: Limited noncontrast examination. No peripancreatic free fluid or fat stranding. SPLEEN: Unremarkable. ADRENAL GLANDS: Unremarkable. KIDNEYS AND URETERS: The kidneys are normal in size, shape, and attenuation. No hydronephrosis, hydroureter, or calculi seen. No perinephric stranding. BLADDER: Unremarkable. GASTROINTESTINAL TRACT: Nonspecific gastric distention with heterogeneous debris, likely related with postprandial state. The small bowel is nondilated. Normal appendix. No pericolonic inflammatory changes. No evidence of bowel obstruction. No free air. ABDOMINAL WALL: No significant hernia is appreciated. LYMPH NODES: No lymphadenopathy. VASCULAR: Normal caliber abdominal aorta. PELVIC VISCERA: Unremarkable. OSSEOUS STRUCTURES: Nonaggressive appearing sclerotic lesions in the pelvis, greater on the left iliac bone. CT/CT abdomen pelvis wo IV con IMPRESSION: 1. No acute intra-abdominal or pelvic abnormalities to explain the patient's symptoms. 2. Nonspecific gastric distention with heterogeneous debris, likely related with postprandial state. 3. Sub-5 mm pulmonary nodules. In patients younger than age 35, standard Fleischner Society recommendations for incidental pulmonary nodule follow-up do not apply as nodules in this age group are most likely to be infectious/inflammatory. Recommend clinical correlation with any risk factors to assess if follow-up of these nodules is clinically warranted.
[2022-08-10 20:53] VITALS: BP 146/59; PULSE 70; RESP 16; TEMP 36.3; O2SAT 98; BMI 27.8
--- NOTE | 2022-08-10 20:55 | ED.GENADULT ---
HPI - General Adult General Chief complaint: Abdominal Pain Stated complaint: Abdominal pain Time Seen by Provider: 08/10/22 23:36 Related Data Previous Rx's Medication Instructions Recorded dicyclomine 20 mg tablet 20 mg PO QID PRN abdominal pain 06/06/22 #20 tabs Allergies Allergy/AdvReac Type Severity Reaction Status Date / Time red dye [RED DYE] Allergy Severe THROAT Verified 08/10/22 20:53 SWELLING, ITCHY RASH diphenhydramine Allergy Intermediate HIVES Verified 08/10/22 20:53 [From BENADRYL] [facility] Past Medical History Medical History (Updated 08/10/22 @ 23:50 by Karolyn Stevenson MD) GERD (gastroesophageal reflux disease) Social History Social History Alcohol intake: never Smoked in Last 30 Days: Yes Use of substances other than those prescribed or required for medical reasons: No Advance Directives: No Advance Directives Information Provided: No Physical Exam ED Vital Signs: Vital Signs - 24 hr 08/10/22 20:53 08/10/22 23:36 Temperature 97.4 F 98.6 F Pulse Rate 70 63 Respiratory Rate 16 12 Blood Pressure 146/59 H 126/61 Pulse Oximetry 98 95 Oxygen Delivery Method Room Air Room Air BMI result Body Mass Index 27.8 Course Course Course Narrative: This is an RME: Additional HPI, ROS, PE not included below will be deferred to primary provider. This is a [id number], with hx of hepatitis C treated with harvoni, presenting to the emergency department with complaints of continued abdominal pain. Has been seen here for similar symptoms. Had colonoscopy non benign polyps, gastritis, pain worse post procedure. right sided abd pain, ringing in ears, dizziness. Plan: Labs, UA ordered. Deferred imaging until see by primary provider. Medications Administered Discontinued Medications Generic Name Dose Route Start Last Admin Trade Name Freq PRN Reason Stop Dose Admin Al Hydroxide/Mg Hydroxide 30 ml 08/10/22 23:46 08/11/22 00:02 Magnesium Hydrox/Alum Hydrox 30 Ml Oral.Susp PO 08/10/22 23:47 30 ml ONCE ONE Administration Famotidine 20 mg 08/10/22 23:46 08/11/22 00:02 Famotidine 20 Mg Tablet PO 08/10/22 23:47 20 mg ONCE ONE Administration Lidocaine HCl 15 ml 08/10/22 23:46 08/11/22 00:02 Lidocaine Hcl Viscous 2 % 15 Ml Solution MUCOUS MEM 08/10/22 23:47 15 ml ONCE ONE Administration Medical Decision Making Lab Data 08/10/22 21:10 08/10/22 21:10 Labs: Lab Results 08/10/22 08/10/22 08/11/22 Range/Units 21:10 21:10 00:00 WBC 8.9 (4.8-10.8) X10*3/uL RBC 5.37 (4.60-5.80) X10*6/uL Hgb 16.3 (14.0-18.0) g/dl Hct 46.3 (42.0-52.0) % MCV 86.2 (80.0-98.0) fL MCH 30.4 (27.0-33.0) pg MCHC 35.2 (31.0-36.0) g/dl RDW 11.4 (11.0-16.0) % Plt Count 191 (160-400) X10*3/uL MPV 12.3 (9.4-12.4) fL Immature Gran % (Auto) 0.3 (0.0-0.4) % Neut % (Auto) 82.7 H (45-73) % Lymph % (Auto) 10.4 L (20-40) % [place] % (Auto) 5.9 (2-11) % Eos % (Auto) 0.4 (0-4) % Baso % (Auto) 0.3 (0-2) % Lymph # (Auto) 0.9 L (1.2-4.9) X10*3/uL [place] # (Auto) 0.5 (0.1-1.2) X10*3/uL Eos # (Auto) 0.0 (0.0-0.4) X10*3/uL Baso # (Auto) 0.0 (0.0-0.2) X10*3/uL Abs Immat Gran (auto) 0.03 (0.00-0.03) X10*3/uL Absolute Neuts (auto) 7.4 (2.0-8.3) x10*3/uL Absolute Nucleated RBC 0.000 (0.0-0.012) X10*3/uL Nucleated RBC % (auto) 0.0 (0.0-0.2) /100WBC Sodium 139 (135-145) mmol/L Potassium 4.5 (3.3-5.1) mmol/L Chloride 100 (96-108) mmol/L Carbon Dioxide 32 H (22-29) mmol/L Anion Gap 12 (12-20) BUN 21 H (9-16) mg/dL Creatinine 1.18 (0.5-1.4) mg/dL Estim Creat Clear Calc 97.7 Estimated GFR > 60 Random Glucose 121 H (60-115) mg/dL Calcium 10.3 H D (8.4-10.2) mg/dL Magnesium 2.1 (1.6-2.6) mg/dL Total Bilirubin 0.7 (0.0-1.0) mg/dL Direct Bilirubin 0.2 (0.0-0.5) mg/dL AST 26 (5-37) U/L ALT 17 (0-40) U/L Alkaline Phosphatase 49 (39-117) U/L Total Protein 7.8 (6.5-8.0) g/dL Albumin 4.9 (3.5-5.0) g/dL Lipase 17 (8-78) U/L Urine Color Yellow Urine Appearance Clear Urine pH 5.5 (5.0-9.0) Ur Specific [place] >= 1.030 H (1.005-1.025) Urine Protein Trace (Neg-Trace) mg/dL Urine Glucose (UA) Negative (Negative) mg/dL Urine Ketones Trace (Negative) mg/dL Urine Blood Negative (Negative) Urine Nitrite Negative (Negative) Ur Leukocyte Esterase Negative (Negative) Discharge Plan Discharge Prescriptions: No Action dicyclomine 20 mg tablet 20 mg PO QID PRN (Reason: abdominal pain) Qty: 20 0RF
[2022-08-10 21:24] LABS: MANUAL DIFF FLAG NO
[2022-08-10 21:25] LABS: Basophils Percent Auto 0.3 % (0-2); Eosinophils Percent Auto 0.4 % (0-4); Hematocrit 46.3 % (42.0-52.0); Hemoglobin 16.3 g/dl (14.0-18.0); Imm Gran Abs Auto 0.03 X10*3/uL (0.00-0.03); Imm Gran Pct Auto 0.3 % (0.0-0.4); Lymphocytes Absolute Auto 0.9 X10*3/uL (1.2-4.9); Lymphocytes Percent Auto 10.4 % (20-40); Mean Corpuscular HGB Conc 35.2 g/dl (31.0-36.0); Mean Corpuscular Hemoglobin 30.4 pg (27.0-33.0); Mean Corpuscular Volume 86.2 fL (80.0-98.0); Mean Platelet Volume 12.3 fL (9.4-12.4); Monocytes Absolute Auto 0.5 X10*3/uL (0.1-1.2); Monocytes Percent Auto 5.9 % (2-11); Neutrophils Absolute Auto 7.4 x10*3/uL (2.0-8.3); Neutrophils Percent Auto 82.7 % (45-73); Platelet Count 191 X10*3/uL (160-400); Red Blood Count 5.37 X10*6/uL (4.60-5.80); Red Cell Distribution Width 11.4 % (11.0-16.0); White Blood Count 8.9 X10*3/uL (4.8-10.8)
[2022-08-10 21:45] LABS: Alanine Aminotransferase 17 U/L (0-40); Albumin Level 4.9 g/dL (3.5-5.0); Alkaline Phosphatase 49 U/L (39-117); Anion Gap 12 (12-20); Aspartate Amino Transferase 26 U/L (5-37); Bilirubin Direct 0.2 mg/dL (0.0-0.5); Bilirubin Total 0.7 mg/dL (0.0-1.0); Blood Urea Nitrogen 21 mg/dL (9-16); Calcium 10.3 mg/dL (8.4-10.2); Carbon Dioxide 32 mmol/L (22-29); Chloride 100 mmol/L (96-108); Creatinine Clr Calc Pharmacy 97.7; Estimated Glomerular Filt Rate > 60; Glucose Random 121 mg/dL (60-115); Lipase 17 U/L (8-78); Magnesium 2.1 mg/dL (1.6-2.6); Potassium 4.5 mmol/L (3.3-5.1); Sodium 139 mmol/L (135-145); Total Protein 7.8 g/dL (6.5-8.0)
[2022-08-10 23:36] VITALS: BP 126/61; PULSE 63; RESP 12; TEMP 37; O2SAT 95
--- NOTE | 2022-08-10 23:47 | ED.ABDPAIN ---
HPI - Abdominal Pain General Chief Complaint: Abdominal Pain Stated Complaint: Abdominal pain Time Seen by Provider: 08/10/22 23:36 Source: patient Mode of arrival: ambulatory Limitations: no limitations History of Present Illness HPI narrative: Patient comes emergency room complaining of diffuse abdominal pain. Patient states that less than a week ago he had an upper endoscopy and a colonoscopy, patient diagnosed with gastritis. Patient states that he has had constant worsening pain since his colonoscopy. Patient denies nausea vomiting or diarrhea, no fever or chills. No dysuria. Related Data Previous Rx's Medication Instructions Recorded dicyclomine 20 mg tablet 20 mg PO QID PRN abdominal pain 06/06/22 #20 tabs sucralfate 1 gram tablet 1 g PO BID #30 tabs 08/11/22 Allergies Allergy/AdvReac Type Severity Reaction Status Date / Time red dye [RED DYE] Allergy Severe THROAT Verified 08/10/22 20:53 SWELLING, ITCHY RASH diphenhydramine Allergy Intermediate HIVES Verified 08/10/22 20:53 [From BENADRYL] Review of Systems Review of Systems Constitutional : No Weight loss, No Fever, No Chills, No Night Sweats, No Fatigue, No Malaise ENT/Mouth : No Hearing loss, No Ear Pain, No Nasal Congestion, No Sinus Pain, No Hoarseness, No sore throat, No Rhinorrhea, No Swallowing Difficulty Eyes: No Eye Pain, No Swelling, No Redness, No Foreign Body, No Discharge, No Vision Changes Cardiovascular : No Chest Pain, No SOB, No Dyspnea on Exertion, No Orthopnea, No Edema, No Palpitations Respiratory : No Cough, No Sputum, No Wheezing, No Smoke Exposure, No Dyspnea Gastrointestinal : No Nausea, No Vomiting, No Diarrhea, No Constipation, complaining of abdominal pain status post colonoscopy and polypectomy, No Hematochezia, No Melena Genitourinary : no irregular bleeding, No Dysuria, No Urinary Frequency, No Hematuria, No Urinary Incontinence, No Urgency, No Flank Pain, No Urinary Flow Changes, No Hesitancy Musculoskeletal : No joint pain, No Myalgias, No Joint Swelling Skin : No Skin Lesions, No rash Neuro : No Weakness, No Numbness, No Paresthesias, No Loss of Consciousness, No Dizziness, No Headache Psych : No Anxiety/Panic, No Depression, No SI/HI/AH/VH, No Social Issues, Heme/Lymph: No Bruising, No Bleeding,No Lymphadenopathy Endocrine : No Polyuria, No Polydipsia, No Temperature Intolerance [facility] Past Medical History Medical History (Updated 08/11/22 @ 01:05 by Karolyn Stevenson MD) GERD (gastroesophageal reflux disease) Social History Social History Alcohol intake: never Smoked in Last 30 Days: Yes Use of substances other than those prescribed or required for medical reasons: No Advance Directives: No Advance Directives Information Provided: No Physical Exam ED Vital Signs: Vital Signs - 24 hr 08/10/22 20:53 08/10/22 23:36 Temperature 97.4 F 98.6 F Pulse Rate 70 63 Respiratory Rate 16 12 Blood Pressure 146/59 H 126/61 Pulse Oximetry 98 95 Oxygen Delivery Method Room Air Room Air BMI result Body Mass Index 27.8 Const Other: Appearance: Alert. Oriented X3. No acute distress. Well-appearing Eyes: Pupils equal, round and reactive to light. ENT: Pharynx normal. Neck: Normal inspection. Neck supple. No lymph nodes noted. No crepitus CVS: Normal heart rate and rhythm. Pulses normal. Normal S1 and S2 Respiratory: No respiratory distress. Breath sounds normal. No Wheezing. No rales Abdomen: Soft , mild pain to palpation over the right lower quadrant and the right upper quadrant, no guarding, no rebound, No rigidity. No distention. Skin: Skin warm and dry. Normal skin color. Normal skin turgor. Extremities: No lower extremity edema. No Lacerations. No Rash Neuro: Oriented X 3. No motor deficit. No sensory deficit. Moving all extremities. No slurred speech. CN 2 through 12 grossly intact Psych: calm, cooperative, normal affect Course Course Course Narrative: -patient's labs and CT pending. -patient given famotidine, viscous lidocaine and Maalox -patient states that he is allergic to contrast, we will do the CT scan without contrast Medical Decision Making Medical Decision Making [facility] Narrative: -My interpretation of CT scan: No air-fluid levels, no free air -I discussed the CT scan findings with the patient, no acute abnormalities. -patient states that he feels much better after GI cocktail. -patient ready for discharge. Lab Data [facility] Lab Attestation statement: I reviewed the patient's lab results. 08/10/22 21:10 08/10/22 21:10 Labs: Lab Results 08/10/22 08/10/22 08/11/22 Range/Units 21:10 21:10 00:00 WBC 8.9 (4.8-10.8) X10*3/uL RBC 5.37 (4.60-5.80) X10*6/uL Hgb 16.3 (14.0-18.0) g/dl Hct 46.3 (42.0-52.0) % MCV 86.2 (80.0-98.0) fL MCH 30.4 (27.0-33.0) pg MCHC 35.2 (31.0-36.0) g/dl RDW 11.4 (11.0-16.0) % Plt Count 191 (160-400) X10*3/uL MPV 12.3 (9.4-12.4) fL Immature Gran % (Auto) 0.3 (0.0-0.4) % Neut % (Auto) 82.7 H (45-73) % Lymph % (Auto) 10.4 L (20-40) % [place] % (Auto) 5.9 (2-11) % Eos % (Auto) 0.4 (0-4) % Baso % (Auto) 0.3 (0-2) % Lymph # (Auto) 0.9 L (1.2-4.9) X10*3/uL [place] # (Auto) 0.5 (0.1-1.2) X10*3/uL Eos # (Auto) 0.0 (0.0-0.4) X10*3/uL Baso # (Auto) 0.0 (0.0-0.2) X10*3/uL Abs Immat Gran (auto) 0.03 (0.00-0.03) X10*3/uL Absolute Neuts (auto) 7.4 (2.0-8.3) x10*3/uL Absolute Nucleated RBC 0.000 (0.0-0.012) X10*3/uL Nucleated RBC % (auto) 0.0 (0.0-0.2) /100WBC Sodium 139 (135-145) mmol/L Potassium 4.5 (3.3-5.1) mmol/L Chloride 100 (96-108) mmol/L Carbon Dioxide 32 H (22-29) mmol/L Anion Gap 12 (12-20) BUN 21 H (9-16) mg/dL Creatinine 1.18 (0.5-1.4) mg/dL Estim Creat Clear Calc 97.7 Estimated GFR > 60 Random Glucose 121 H (60-115) mg/dL Calcium 10.3 H D (8.4-10.2) mg/dL Magnesium 2.1 (1.6-2.6) mg/dL Total Bilirubin 0.7 (0.0-1.0) mg/dL Direct Bilirubin 0.2 (0.0-0.5) mg/dL AST 26 (5-37) U/L ALT 17 (0-40) U/L Alkaline Phosphatase 49 (39-117) U/L Total Protein 7.8 (6.5-8.0) g/dL Albumin 4.9 (3.5-5.0) g/dL Lipase 17 (8-78) U/L Urine Color Yellow Urine Appearance Clear Urine pH 5.5 (5.0-9.0) Ur Specific [place] >= 1.030 H (1.005-1.025) Urine Protein Trace (Neg-Trace) mg/dL Urine Glucose (UA) Negative (Negative) mg/dL Urine Ketones Trace (Negative) mg/dL Urine Blood Negative (Negative) Urine Nitrite Negative (Negative) Ur Leukocyte Esterase Negative (Negative) Medications Administered Discontinued Medications Generic Name Dose Route Start Last Admin Trade Name Freq PRN Reason Stop Dose Admin Al Hydroxide/Mg Hydroxide 30 ml 08/10/22 23:46 08/11/22 00:02 Magnesium Hydrox/Alum Hydrox 30 Ml Oral.Susp PO 08/10/22 23:47 30 ml ONCE ONE Administration Famotidine 20 mg 08/10/22 23:46 08/11/22 00:02 Famotidine 20 Mg Tablet PO 08/10/22 23:47 20 mg ONCE ONE Administration Lidocaine HCl 15 ml 08/10/22 23:46 08/11/22 00:02 Lidocaine Hcl Viscous 2 % 15 Ml Solution MUCOUS MEM 08/10/22 23:47 15 ml ONCE ONE Administration Discharge Plan Discharge Clinical Impression: Chronic GERD Patient Disposition: Home, Self-Care Instructions: Gastroesophageal Reflux Disease (ED) Additional Instructions: Please follow-up with your primary care physician tomorrow. If you have any worsening or new symptoms, please return to the emergency room or call 911 Prescriptions: New sucralfate 1 gram tablet 1 g PO BID Qty: 30 0RF No Action dicyclomine 20 mg tablet 20 mg PO QID PRN (Reason: abdominal pain) Qty: 20 0RF
[2022-08-11] MEDS: Lidocaine HCl Viscous 2 % 15 ML SOLUTION MUCOUS MEM (00:02)
[2022-08-11] MEDS: Magnesium Hydrox/Alum Hydrox 30 ML ORAL.SUSP PO (00:02)
[2022-08-11] MEDS: Famotidine 20 MG TABLET PO (00:02)
[2022-08-11 00:09] LABS: Appearance Urine Clear; Color Urine Yellow; Glucose Urine UA Negative (Negative); Leukocyte Esterase Urine Negative (Negative); Nitrite Urine Negative (Negative); PH 5.5 (5.0-9.0); Specific Gravity - Urine >= 1.030 (1.005-1.025); Urine Blood Negative (Negative); Urine Ketones Trace mg/dL (Negative); Urine Protein Trace mg/dL (Neg-Trace)
== END 2022-08-11 01:41 | disposition home or self-care (01) ==
PROVIDERS: Physician Assistant Medical; Emergency Provider Emergency Medicine; PCP Internal Medicine
DX: K21.9 Gastro-esophageal reflux disease without esophagitis (principal); R10.2 Pelvic and perineal pain; Z79.899 Other long term (current) drug therapy
CPT/HCPCS: 36415; 74176; 80048; 80076; 81003; 83690; 83735; 85025; 99284

== ENCOUNTER 2023-05-05 18:46 | Emergency (ER) | payer OTHER, SELFPAY ==
[2023-05-05 18:53] VITALS: BP 158/101; PULSE 86; RESP 18; TEMP 36.7; O2SAT 98; BMI 27.2
[2023-05-05 19:22] LABS: IDNOW Serial# 152EDE1D
[2023-05-05 19:23] LABS: COVID-19 Test Negative (Negative); IDNOW Serial# 08D9AD1C; Influenza A Negative (Negative); Influenza B2 Negative (Negative)
--- NOTE | 2023-05-05 20:42 | ED.GENADULT ---
HPI - General Adult General Chief complaint: Upper Respiratory Symptoms Stated complaint: recent sinus infection, meds no work. Open sore? Time Seen by Provider: 05/05/23 20:04 Source: patient, RN notes reviewed and old records reviewed Mode of arrival: ambulatory Limitations: no limitations History of Present Illness HPI narrative: 33-year-old male presents for evaluation pain to the right nostril. He reports that he was treated for a sinus infection about 2 weeks ago and finished the antibiotics 4 days ago. He reports that he has been using fluticasone nasal spray to both nostrils 3 sprays every 6 months. He noticed an abnormality to the right side of his nose on the septal side which prompted him to seek evaluation in the ER He has been seen by Neurology, Ophthalmology as well as ENT in the past for complaints of headaches and sinus pain Related Data Previous Rx's Medication Instructions Recorded dicyclomine 20 mg tablet 20 mg PO QID PRN abdominal pain 06/06/22 #20 tabs sucralfate 1 gram tablet 1 g PO BID #30 tabs 08/11/22 mupirocin 2 % topical ointment 1 appl topical TID 7 days #22 grams 05/05/23 Allergies Allergy/AdvReac Type Severity Reaction Status Date / Time red dye [RED DYE] Allergy Severe THROAT Verified 05/05/23 18:53 SWELLING, ITCHY RASH diphenhydramine Allergy Intermediate HIVES Verified 05/05/23 18:53 [From BENADRYL] Review of Systems Constitutional: Constitutional: Reports headache(s) Eyes: Eyes: Denies blurry vision ENT: Reports facial pain, Reports headache(s), Reports nasal congestion and Reports nose pain Neurologic: Reports headache(s) [facility] Past Medical History Medical History (Updated 05/05/23 @ 20:44 by Dinesh Astorga) GERD (gastroesophageal reflux disease) Social History Social History Alcohol intake: never Advance Directives: No Advance Directives Information Provided: No Physical Exam ED Vital Signs: Vital Signs - 24 hr 05/05/23 18:53 Temperature 98.0 F Pulse Rate 86 Respiratory Rate 18 Blood Pressure 158/101 H Pulse Oximetry 98 Oxygen Delivery Method Room Air BMI result Body Mass Index 27.2 Const General: healthy appearing, comfortable, no acute distress, alert and awake Nutritional Appearance: well nourished Orientation/consciousness: patient oriented x3 HENMT Other: Patient has a 2 cm round ulceration to the right side of the nasal septum. There is surrounding purulent drainage. TMs visualized bilaterally, pearly white without erythema or effusion Head: Yes normocephalic and Yes atraumatic Throat: Yes posterior oropharynx normal Eyes Eyelids: Yes eyelids normal Conjunctivae: conjunctivae normal Sclerae: sclerae normal Corneas: corneas normal Pupils: Equal, round and reactive pupils present EOM: EOMs intact bilaterally Neck Neck: Yes full ROM Resp Effort & Inspection: normal respiratory effort, able to speak in complete sentences and not labored Skin General skin exam: elasticity normal Neuro General: patient oriented x3 Cranial nerves: Yes Equal, round and reactive pupils present and Yes Bilaterally intact EOM present Cognition (Neuro): normal cognition Extrem Other: Moving all extremities well without any obvious deformities Medical Decision Making Medical Decision Making MDM Narrative: Patient likely has some degree of chronic sinusitis, has been on clindamycin a month ago and Augmentin 2 weeks ago, I do not see any indication for further systemic antibiotics. He appears to have an ulceration to the right side the septum which is likely related to his significantly excessive nasal spray use. The patient was educated on nasal spray use and he was encouraged to stop using his brace altogether while his nasal septum heels. He has his on ENT doctor he states that he can follow-up with Differential Diagnosis Differential Diagnoses: The differential diagnosis associated with the presentation includes Nasal septal defect Ulceration Sinusitis Allergies Lab Data Labs: Lab Results 05/05/23 Range/Units 19:03 COVID-19 ([facility]) Negative (Negative) COVID-19 Clin Com See Note Influenza Type A (ISIDRO) Negative (Negative) Influenza Type B (ISIDRO) Negative (Negative) Influenza A & B Note See Note Discharge Plan Discharge Clinical Impression: Abnormal nasal septum Patient Disposition: Home, Self-Care Instructions: Sinusitis (ED) Additional Instructions: You have an ulcer on the nasal septum. This is likely due to the excessive use of fluticasone. I recommend that you stop using any nasal sprays until your septum heels and you are cleared by your ear nose and throat doctor You may use [id number] oral decongestants for congestion Use Bactroban 3 times daily for 1 week gently applied to the inside of the nasal septum Return for new or worsening symptoms Prescriptions: New mupirocin 2 % ointment 1 appl topical TID 7 Days Qty: 22 0RF No Action dicyclomine 20 mg tablet 20 mg PO QID PRN (Reason: abdominal pain) Qty: 20 0RF sucralfate 1 gram tablet 1 g PO BID Qty: 30 0RF
[2023-05-05 20:52] VITALS: BP 134/62; PULSE 70; RESP 16; TEMP 36.6; O2SAT 98
== END 2023-05-05 20:56 | disposition home or self-care (01) ==
PROVIDERS: Emergency Provider Internal Medicine
DX: J32.9 Chronic sinusitis, unspecified (principal); Z11.52 Encounter for screening for COVID-19
CPT/HCPCS: 87502; 87635; 99283; 99284

== ENCOUNTER 2023-08-06 15:59 | Emergency (ER) | payer OTHER, SELFPAY | END 2023-08-06 18:12 | disposition left against medical advice (07) | PROVIDERS: Emergency Provider Emergency Medicine | DX: Z53.21 Procedure and treatment not carried out due to patient leaving prior to being seen by health care provider (principal); A64 Unspecified sexually transmitted disease ==